=== PATIENT | female | born 1985 | race African-American/Black ===

== ENCOUNTER 2022-12-05 15:59 | Inpatient (IN) ==
[2022-12-05 16:38] LABS: Basophils # (auto) 0.02 K/uL (0-0.2); Basophils % (auto) 0.3 %; Eosinophils # (auto) 0.03 K/uL (0-0.50); Eosinophils % (auto) 0.4 %; Hematocrit (blood only) 27.7 % (37.0-47.0); Hemoglobin 9.2 g/dl (12.0-16.0); Immature Granulocytes # (auto) 0.03 K/uL (0.01-0.20); Immature Granulocytes % (auto) 0.4 %; Lymphocytes # (auto) 1.26 K/uL (1.2-3.4); Mean Corpuscular Hemoglobin 27.7 pg (25.0-34.0); Mean Corpuscular Hgb Conc 33.2 g/dL (32.0-36.0); Mean Corpuscular Volume 83.4 fL (80.0-100.0); Mean Platelet Volume 10.5 fL (9.4-12.4); Monocytes % (auto) 12.1 %; Neutrophils # (auto) 5.17 K/uL (1.40-6.50); Neutrophils % (auto) 69.8 %; Platelet Count 249 K/uL (130-400); RDW Coefficient of Variation 14.1 % (11.5-14.5); RDW Standard Deviation 42.3 fL (36.4-46.3); Red Blood Count 3.32 M/uL (4.20-5.40); White Blood Count 7.41 K/ul (4.8-10.8)
[2022-12-05 17:02] LABS: Alanine Aminotransferase 9 U/L (7-52); Aspartate Aminotransferase 16 U/L (13-39); Est GFR (African American) 141.3 ml/min; Est GFR (Non-African American) 121.9 ml/min
--- NOTE | 2022-12-05 18:16 | History & Physical Report ---
Date of Service December 05, 2022 Assessment & Plan (1) Elevated blood pressure affecting in second trimester, antepartum: Plan: Patient is labeled as chronic hypertensive she has been on medication in the past but not currently now her pressures have crept up and she had protein in her urine today her labs are assessed and these are all normal preeclampsia labs the patient has confided this today that she did do methamphetamine within the last 2 days as well the certainly would have elevated her blood pressure as well. We discussed the importance of avoiding methamphetamine with her chronic hypertensive diagnosis we discussed antihypertensives I did review this case with Dr. Whalen is coming exploration manager tomorrow as well and discussed the possibility of initiation of antihypertensives but most recent blood pressures are much more reasonable at this stage I think we will want to monitor closely collect more data if the blood pressures increase again I would consider starting an antihypertensive. Her protein creatinine ratio is elevated as well and she may well be getting preeclampsia with mild features but we will monitor overnight for more information Additionally drug screen is positive for cocaine methamphetamine and ecstasy and marijuana History of Present Illness Primary Care Provider: Janey Duncan MD Patient sent from the office for blood pressure monitoring she is asymptomatic she has had some increased swelling but no headache no visual problems no right upper quadrant pain she has a history of chronic hypertension and some other medical issues as well including drug use in the past Visit ERICH Calculator Estimated Delivery Date Method Current WG Current Estimate 01/05/23 Ultrasound #1 35w 4d Other Estimates 12/23/22 Conception 37w 3d : 3 Full term: 2 Premature: 0 Total Number of Induced Abortions: 0 Total Number of Spontaneous Abortions: 0 Ectopics: 0 Multiple births: 0 Number of Living Children: 2 and Delivery Plans CHTN *Baby ASA daily start 12-28 wks, continue until delivery *wkly NST's @32wks and twice wkly @36 wks *Serial Growth US @ 24 (doppler only if abnml) *Baseline 24hr urine (additioinal PRN) 204.0 *weekly BRITNEY's @ 32wk(if on meds) *Deliver [id number] -IOL 12/25/22 with Violet *ON methyldopa in a previous *previously on metoprolol Hx of cardiomegaly (2013) *maternal echo - normal function, mild LVH *cannot find any documentation in the chart regarding this--[facility] November 2022 Maternal ECHO: Slight increase LV wall thickness compared to prior, EF 60-65%, no CHF, mild LVH. AMA *weekly NSTs 36w History of Preeclampsia *G1 and G2 * G2 admission for magnesium Hepatitis C positive --new diagnosis planned [facility] GI consult No followup during will treat after ppx. positive drug screen in 2019 for meth, MJ, ecstasy GI states will not see patient until PP and has no recs for Offered MFM consult Allergies Allergy/AdvReac Type Severity Reaction Status Date / Time shellfish derived Allergy Severe Anaphylaxis Verified 12/05/22 14:09 latex Allergy Mild itching Verified 12/05/22 14:09 Iodinated Contrast Media Allergy Unknown ANAPHYLAXIS Verified 12/05/22 14:09 Home Medications Medication Instructions Recorded Confirmed Type aspirin 81 mg tablet,delayed 81 mg PO DAILY 07/14/22 12/05/22 History release (Adult Low Dose Aspirin) folic acid PO 07/14/22 12/05/22 History ferrous sulfate [Iron (ferrous PO 11/14/22 12/05/22 History sulfate)] Patient History Medical History High blood pressure Positive PPD Vaginal delivery (10/06/11) Varicella vaccination Surgical History No pertinent past surgical history Family History Uncle Colorectal cancer Aunt Breast cancer Mother Heart disease Father Heart disease Denies family history of Ovarian cancer Social History Smoking Status: Current every day smoker Tobacco Type: E-cigarettes / Vaping Cigarettes Per Day: 10; Second Hand Exposure: No; Do You Dip or Chew Tobacco: No; Tobacco Cessation Education Requested by Patient: No Hx Alcohol Use: No Hx Substance Use: Yes Last Used Substance: Days (ago) Last Used Substance Other:: Patient states that she last smoked meth on 12/04/22. Preferred Language: Georgian Communication Ability: Effective Paperhanger Contractor Required: No Beliefs That Will Affect Care: None marital status: Legally marital status details: garcia Shaquille Lowry [phone]) [phone] Current Living Situation: Significant Other Current Living Situation Comment: Lives with Father of Baby. Her 2 other children live with her mother. current occupational status: unemployed Other Information That Helps Us Care for You: No Feels Safe at Home: Yes Safety Concerns: Feels Safe At This Time Assistive Devices: None Review of Systems as per Subjective / HPI Physical Exam Constitutional: WD/WN, vitals as above well developed and well nourished Respiratory: normal respiratory effort, lungs clear to auscultation normal respiratory effort Cardiovascular: RRR, no murmur, no edema Gastrointestinal (Abdomen): normal bowel sounds, soft, nontender, no hepatosplenomegaly Results & Data Vital Signs (Past 12 Hours) Vital Signs Pulse BP 12/05/22 18:05 96 H 175/109 H 12/05/22 17:46 93 H 140/91 12/05/22 17:34 82 164/110 H 12/05/22 17:24 87 144/103 H 12/05/22 17:15 76 174/99 H 12/05/22 16:47 74 155/95 H 12/05/22 16:37 90 157/97 H 12/05/22 16:26 94 H 149/94 H 12/05/22 16:16 101 H 152/100 H 12/05/22 16:06 96 H 143/94 H Coding Level of Care Code 06484 INT INP/OBS CARE 3/75MIN Diagnoses Elevated blood pressure affecting in second trimester, antepartum O16.2
[2022-12-05 18:23] LABS: Amphetamines+Metham, Urine Pos (Neg); Barbiturates, Urine Neg (Neg); Benzodiazepine, Urine Neg (Neg); Cocaine, Urine Pos (Neg); MDMA (Ecstacy), Urine Pos (Neg); Methadone, Urine Neg (Neg); Opiate, Urine Neg (Neg); Phencyclidine, Urine Neg (Neg)
[2022-12-05 18:31] LABS: Creatinine Urine Random 341.2 mg/dl; Protein Creatinine Ratio Urine 0.7 (0-0.2); Total Protein Urine Random 244.4 mg/dl (0-11.9)
--- NOTE | 2022-12-06 06:50 | Obstetrical Progress Note ---
Date of Service December 06, 2022 Assessment & Plan (1) Elevated blood pressure affecting in second trimester, antepartum: Plan: Blood pressureblood pressures continue to be labile. Some of them arsome of them are fairly normal range some significantly elevated I i'm hesitant to initiate antihypertensives with her lower blood pressures and again wondering the impact of drug use in the last few days. continue to monitor the stage Admission and Anticipated Discharge Date Admission Date: December 05, 2022 Results & Data Vital Signs (Past 12 Hours) Vital Signs Temp Pulse Resp BP O2 Del Method 12/06/22 06:34 73 131/79 12/06/22 06:03 81 134/89 12/06/22 05:34 87 161/99 H 12/06/22 05:04 76 157/95 H 12/06/22 04:34 83 137/83 12/06/22 04:04 86 152/87 H 12/06/22 03:34 86 155/94 H 12/06/22 03:11 78 140/95 12/06/22 03:04 75 135/88 12/06/22 02:34 96 H 159/100 H 12/06/22 02:05 93 H 153/97 H 12/05/22 19:15 98.2 F 16 Room Air 12/06/22 01:34 95 H 134/110 H 12/06/22 01:03 88 130/74 12/06/22 00:41 91 H 150/86 H 12/06/22 00:26 97 H 147/94 H 12/06/22 00:10 82 139/86 12/05/22 23:57 85 12/05/22 23:57 134/86 12/05/22 23:41 93 H 12/05/22 23:41 128/80 12/05/22 23:25 100 H 12/05/22 23:25 142/91 H 12/05/22 23:10 94 H 12/05/22 23:10 138/95 12/05/22 22:55 91 H 12/05/22 22:55 138/83 12/05/22 22:18 106 H 12/05/22 22:18 155/100 H 12/05/22 21:57 104 H 12/05/22 21:57 138/91 12/05/22 21:55 90 12/05/22 21:55 158/100 H 12/05/22 21:30 92 H 12/05/22 21:30 156/104 H 12/05/22 21:15 100 H 12/05/22 21:15 125/89 12/05/22 20:51 80 12/05/22 20:51 159/103 H 12/05/22 20:45 77 12/05/22 20:45 171/106 H 12/05/22 20:31 82 12/05/22 20:31 154/93 H 12/05/22 20:16 75 177/103 H 12/05/22 19:59 82 131/86 12/05/22 19:44 85 135/83 12/05/22 19:28 80 164/96 H 12/05/22 18:54 88 156/105 H PG Care Time/CCT Total # of Minutes Spent Total Time Spent with Patient: Total time spent is greater than 50% in coordination of care (as documented) at patient's floor/unit and/or counseling patient: Coding Level of Care Code 03949 SUB INP/OBS CARE 1/25MIN Diagnoses Elevated blood pressure affecting in second trimester, antepartum O16.2
[2022-12-06] MEDS ORDERED: BETAMETH SOD PHOS/ACETATE IA 6 MG/ML IM STA (10:02)
[2022-12-06] MEDS ORDERED: LIDOCAINE 1% LOCAL 20 ML VIAL INFIL PRN (10:09)
[2022-12-06] MEDS ORDERED: PENICILLIN G POTASSIUM 6 MU in DEXTROSE 5% 250 ML IV STA (10:09)
[2022-12-06] MEDS ORDERED: OXYTOCIN 30 UNITS/500 ML BAG IV PRN ×4 (10:09→23:46)
--- NOTE | 2022-12-06 10:21 | Labor Progress Brief Note ---
Date of Service December 06, 2022 Subjective Patient feesl well. Denies s/s of pet. Notes occasional contractions. No lof/vb. +fm Assessment & Plan (1) Chronic hypertension affecting : (2) Preeclampsia complicating hypertension: Plan I called MFM at [facility] [facility] and discussed this case with Dr. Flores. Given that she has sporadic severe blood pressures, greater than 4 hours apart, although not sustained needing treatment, she suspects that this patient has pet with severe features with her blood pressure, emmy in setting of pro/peanut farmer ratio of 0.7. Has not needed treatment for blood pressures. She recommends proceeding with delivery without delay given that it is very likely her pressures will continue to be elevated. She has no other severe features. Recommend giving steroids but not delaying moving forward. Discussed this recommendation with the patient who immediately became tearful. Notes she is not ready for this. discussed the risk of continued and eclampsia. Patient understands the risks assoc iated with PET. She is 35 5/7 weeks. We discussed the prematurity of the baby, it is female. 11/21 us showed an appropriately grown baby, she notes was 4#12oz at that us, so likely will be over 5 pounds. She is very concerned about being from her baby. Discussed the situation with peds who is ok with me keeping the patient. However, discussed that if baby would need NICU care, she would then be transferred and they would be . Discussed if she absolutely wants to avoid this, would recommend transfer to [facility] [facility] and that Dr. Flores is willing to accept in transfer. After discussion and answering questions to the best of my ability, she has agreed to proceeding here. Will check cervix soon and make plan to proceed. Admission and Anticipated Discharge Date Admission Date: December 05, 2022 Physical Exam Physical Exam: BPS over observation very labile, low 128-80, high 171/106. Mostly 140s- 150s/90s. However, she has had an occasional severe range blood pressure, that have been documented 4 hours apart. toco--harman efm---130s wtih mod variabiltiy accels to 160s, no decels dtrs--+2/2 no clonus trace edema Results & Data Vital Signs (Past 12 Hours) Vital Signs Temp Pulse Resp BP 12/06/22 10:04 88 143/92 H 12/06/22 09:34 104 H 131/84 12/06/22 09:04 85 124/83 12/06/22 08:34 76 143/88 H 12/06/22 08:04 85 140/83 12/06/22 07:30 20 12/06/22 07:30 36.8 C 20 12/06/22 07:34 71 163/91 H 12/06/22 07:04 78 144/79 H 12/06/22 06:34 73 131/79 12/06/22 06:03 81 134/89 12/06/22 05:34 87 161/99 H 12/06/22 05:04 76 157/95 H 12/06/22 04:34 83 137/83 12/06/22 04:04 86 152/87 H 12/06/22 03:34 86 155/94 H 12/06/22 03:11 78 140/95 12/06/22 03:04 75 135/88 12/06/22 02:34 96 H 159/100 H 12/06/22 02:05 93 H 153/97 H 12/06/22 01:34 95 H 134/110 H 12/06/22 01:03 88 130/74 12/06/22 00:41 91 H 150/86 H 12/06/22 00:26 97 H 147/94 H 12/06/22 00:10 82 139/86 12/05/22 23:57 85 12/05/22 23:57 134/86 12/05/22 23:41 93 H 12/05/22 23:41 128/80 12/05/22 23:25 100 H 12/05/22 23:25 142/91 H 12/05/22 23:10 94 H 12/05/22 23:10 138/95 05 22:55 91 H 12/05/22 22:55 138/83 05 22:18 106 H 12/05/22 22:18 155/100 H Coding Level of Care Code None Diagnoses Chronic hypertension affecting O10.919 Preeclampsia complicating hypertension O11.9
[2022-12-06 10:49] LABS: Hematocrit (blood only) 27.9 % (37.0-47.0); Hemoglobin 9.1 g/dl (12.0-16.0); Mean Corpuscular Hemoglobin 27.8 pg (25.0-34.0); Mean Corpuscular Hgb Conc 32.6 g/dL (32.0-36.0); Mean Corpuscular Volume 85.3 fL (80.0-100.0); Mean Platelet Volume 10.6 fL (9.4-12.4); Platelet Count 232 K/uL (130-400); RDW Coefficient of Variation 14.2 % (11.5-14.5); RDW Standard Deviation 43.4 fL (36.4-46.3); Red Blood Count 3.27 M/uL (4.20-5.40); White Blood Count 5.14 K/ul (4.8-10.8)
[2022-12-06] MEDS ORDERED: MAG SULFATE 4GM BOLUS FROM BAG IV ONE (10:59)
[2022-12-06] MEDS: LACTATED RINGER'S 1,000 ML IV PRN ×2 (11:19→19:15)
[2022-12-06] MEDS: MAGNESIUM SULFATE / WTR 40 GM/1,000 ML BAG IV SCH (11:32)
--- NOTE | 2022-12-06 11:32 | Communication Note ---
Date of Service: December 06, 2022 cx--1/l/h/mid/mod toco--occasional efm--130s wtih mod variaiblity, accels present, no decels. Patient verbally consented for foy bulb. Speculum placed, cx visualized, latex free foy placed through the cervix and balloon and inflated with 30cc sterile water. Tolerated procedure well Foy catheter placed, used hibiclens and water for washing because just really unsure about whether she has an iodine allergy. Placed without difficulty. plan to start pit, and mag. pcn for gbs unknown.
--- NOTE | 2022-12-06 12:09 | Labor Progress Brief Note ---
Date of Service December 06, 2022 Subjective patient notes bulb fell out Assessment & Plan (1) Preeclampsia complicating hypertension: Plan continue pitocin, foy did dilate cervix some. fetus category one. Admission and Anticipated Discharge Date Admission Date: December 06, 2022 Physical Exam Physical Exam: cx--difficult exam secondary to patient discomfort, /-3 toco--occasional contraction efm--130s with modvariabiltiy, accels present, no decels. Results & Data Vital Signs (Past 12 Hours) Vital Signs Temp Pulse Resp BP 12/06/22 12:06 78 144/97 H 12/06/22 11:52 77 140/94 12/06/22 11:36 84 136/91 12/06/22 11:00 20 12/06/22 11:00 37.1 C 81 20 151/86 H 12/06/22 10:04 88 143/92 H 12/06/22 09:34 104 H 131/84 12/06/22 09:04 85 124/83 12/06/22 08:34 76 143/88 H 12/06/22 08:04 85 140/83 12/06/22 07:30 20 12/06/22 07:30 36.8 C 20 12/06/22 07:34 71 163/91 H 12/06/22 07:04 78 144/79 H 12/06/22 06:34 73 131/79 12/06/22 06:03 81 134/89 12/06/22 05:34 87 161/99 H 12/06/22 05:04 76 157/95 H 12/06/22 04:34 83 137/83 12/06/22 04:04 86 152/87 H 12/06/22 03:34 86 155/94 H 12/06/22 03:11 78 140/95 12/06/22 03:04 75 135/88 12/06/22 02:34 96 H 159/100 H 12/06/22 02:05 93 H 153/97 H 12/06/22 01:34 95 H 134/110 H 12/06/22 01:03 88 130/74 12/06/22 00:41 91 H 150/86 H 12/06/22 00:26 97 H 147/94 H 12/06/22 00:10 82 139/86 Coding Level of Care Code None Diagnoses Preeclampsia complicating hypertension O11.9
[2022-12-06] MEDS ORDERED: ePHEDrine sulfate 50 MG/ML AMP ONE (14:47)
[2022-12-06] MEDS ORDERED: SODIUM CHLORIDE 0.9% PF INJ 10 ML VIAL ONE (14:47)
[2022-12-06] MEDS ORDERED: fentaNYL citrate PF 100 MCG/2 ML VIAL ONE (14:47)
[2022-12-06] MEDS ORDERED: fentaNYL 2MCG/ML ROPIVACAINE 1.25MG/ML 100 ML BAG EPI ONE (14:48)
[2022-12-06] MEDS ORDERED: LIDOCAINE 2%/EPINEPHRINE 1:200,000 20 ML PF ONE ×2 (14:48→20:47)
[2022-12-06] MEDS ORDERED: BUPIVACAINE 0.25% PF 30 ML VIAL ONE (14:48)
--- NOTE | 2022-12-06 15:03 | Anesthesiology Consultation ---
Date of Service December 06, 2022 Assessment & Plan (1) Encounter for pre-operative examination: Chart Review Chart Review: Acceptable Risk for Labor Epidural History Height/Weight Height: 5 ft 7 in Weight: 78.018 kg Allergies Allergy/AdvReac Type Severity Reaction Status Date / Time shellfish derived Allergy Severe Anaphylaxis Verified 12/05/22 14:09 latex Allergy Mild itching Verified 12/05/22 14:09 Iodinated Contrast Media Allergy Unknown ANAPHYLAXIS Verified 12/05/22 14:09 Medications Home Medications Medication Instructions Recorded Confirmed Last Taken aspirin 81 mg tablet,delayed 81 mg PO DAILY 07/14/22 12/05/22 Unknown release (Adult Low Dose Aspirin) folic acid PO 07/14/22 12/05/22 Unknown ferrous sulfate [Iron (ferrous PO 11/14/22 12/05/22 Unknown sulfate)] Active Medications Generic Name Dose Route Start Last Admin Trade Name Freq PRN Reason Stop Dose Admin Lactated Ringer's 1,000 mls @ 125 mls/hr 12/06/22 10:09 12/06/22 14:50 Lr IV 12/08/22 10:08 999 mls/hr .Q8H PRN Infusion L&D Protocol Protocol Magnesium Sulfate 40 gm in 1,000 mls @ 50 mls/hr 12/06/22 11:00 12/06/22 12:04 Magnesium Sulfate / Wtr IV 01/05/23 10:59 50 mls/hr .Q20H KALEE Infusion Oxytocin 30 units in 500 mls @ 5 mls/hr 12/06/22 12:09 12/06/22 14:00 Pitocin IV 12/08/22 12:08 0.42 units/hr .Q24H PRN 7 mls/hr Labor Induction/Augmentation Titration Protocol 0.3 UNITS/HR Past Medical History Medical History High blood pressure Positive PPD Vaginal delivery (10/06/11) Varicella vaccination Past Family History Family History Uncle Colorectal cancer Aunt Breast cancer Mother Heart disease Father Heart disease Denies family history of Ovarian cancer Past Surgical History Surgical History No pertinent past surgical history Social History Smoking Status: Current every day smoker tobacco type: cigarettes Smoking cigarettes per day: 10 Do You Dip or Chew Tobacco: No Hx Alcohol Use: No Hx Substance Use: Yes substance use type: methamphetamine Last Used Substance: Days (ago) Last Used Substance Other:: Patient states that she last smoked meth on 12/04/22. Physical Exam Vital Signs Last Vital Signs Temp 37.1 C 12/06/22 11:00 Pulse 85 12/06/22 15:00 Resp 20 12/06/22 11:00 BP 144/88 H 12/06/22 14:52 Pulse Ox 96 12/06/22 15:00 O2 Del Method Room Air 12/05/22 19:15 Testing Laboratory Results 12/06/22 10:17 12/05/22 16:22
[2022-12-06] MEDS ORDERED: fentaNYL citrate PF 100 MCG/2 ML VIAL EPI STA (15:36)
[2022-12-06] MEDS ORDERED: ONDANSETRON INJ 2 MG/ML 2 ML VIAL IV PRN (15:36)
[2022-12-06] MEDS ORDERED: ePHEDrine sulfate 50 MG/ML AMP IV PRN (15:36)
[2022-12-06] MEDS ORDERED: NALOXONE HCL 0.4 MG/1 ML VIAL/CARP IV PRN (15:36)
[2022-12-06] MEDS ORDERED: fentaNYL citrate PF 100 MCG/2 ML VIAL EPI PRN (15:36)
[2022-12-06] MEDS ORDERED: BUPIVACAINE 0.25% PF 30 ML VIAL EPI PRN (15:36)
[2022-12-06] MEDS ORDERED: ROPIVACAINE 0.5% PF 5 MG/ML 20 ML VIAL EPI PRN (15:36)
[2022-12-06] MEDS ORDERED: SODIUM CHLORIDE 0.9% PF INJ 10 ML VIAL EPI PRN (15:36)
[2022-12-06] MEDS ORDERED: NALOXONE HCL 1 MG in SODIUM CHLORIDE 0.9% 1000ML 1,000 ML IV PRN (15:36)
[2022-12-06] MEDS ORDERED: LIDOCAINE 2% MPF LOCAL 5 ML VIAL EPI PRN (15:36)
[2022-12-06] MEDS ORDERED: fentaNYL 2MCG/ML ROPIVACAINE 1.25MG/ML 100 ML BAG EPI PRN (15:36)
[2022-12-06] MEDS ORDERED: SODIUM CHLORIDE 0.9% PF INJ 10 ML VIAL EPI STA (15:40)
[2022-12-06] MEDS ORDERED: LIDOCAINE 2%/EPINEPHRINE 1:200,000 20 ML PF EPI STA (15:41)
[2022-12-06] MEDS ORDERED: BUPIVACAINE 0.25% PF 30 ML VIAL EPI STA (15:43)
[2022-12-06] MEDS: PENICILLIN G POTASSIUM 3 MU in DEXTROSE 5% 100 ML IV PRN ×2 (15:44→19:15)
--- NOTE | 2022-12-06 16:06 | Labor Progress Brief Note ---
Date of Service December 06, 2022 Subjective Patient started getting uncomfortable. Pressures a little higher. Got epidural. Very comfortable. Assessment & Plan (1) Preeclampsia complicating hypertension: Plan comfortable. continue current therapy. Monitor pressures closely 150s-165/90. If gets >165/105 , plan to treat with labetolol. fetus category one. anticipate . arom soon. Admission and Anticipated Discharge Date Admission Date: December 06, 2022 Physical Exam Physical Exam: cx--3/50/-2/anterior under pubis, soft toco--q3-5min, pt at 11 efm--130s with mod variabiltiy, accels to 150s, no decels Results & Data Vital Signs (Past 12 Hours) Vital Signs Temp Pulse Resp BP Pulse Ox 12/06/22 16:01 84 100 12/06/22 16:00 82 158/94 H 12/06/22 15:56 85 98 12/06/22 15:54 87 162/94 H 12/06/22 14:30 20 12/06/22 14:30 20 12/06/22 15:52 83 165/95 H 12/06/22 12:30 20 12/06/22 12:30 20 12/06/22 13:30 18 12/06/22 13:30 18 12/06/22 15:51 84 99 12/06/22 15:35 20 12/06/22 15:35 20 12/06/22 15:45 18 12/06/22 15:45 18 12/06/22 15:50 82 157/92 H 12/06/22 15:48 80 153/91 H 12/06/22 15:46 99 12/06/22 15:46 84 12/06/22 15:46 88 149/89 H 12/06/22 15:44 81 147/89 H 12/06/22 15:41 85 100 12/06/22 15:42 88 151/96 H 12/06/22 15:40 93 H 147/91 H 12/06/22 15:38 80 148/95 H 12/06/22 15:36 99 12/06/22 15:36 80 12/06/22 15:36 80 154/97 H 12/06/22 15:34 76 155/99 H 12/06/22 15:31 92 H 100 12/06/22 15:32 83 153/93 H 12/06/22 15:30 93 H 157/103 H 12/06/22 15:28 83 147/89 H 12/06/22 15:26 86 100 12/06/22 15:21 83 161/99 H 99 12/06/22 15:19 94 H 71 L 12/06/22 15:15 77 94 12/06/22 15:13 88 91 12/06/22 15:10 82 100 12/06/22 15:05 91 H 100 12/06/22 15:06 91 H 153/95 H 12/06/22 15:00 36.9 C 85 20 96 12/06/22 14:55 91 H 100 12/06/22 14:52 83 144/88 H 12/06/22 14:37 78 145/91 H 12/06/22 14:21 78 148/91 H 12/06/22 14:06 84 156/92 H 12/06/22 13:51 80 155/101 H 12/06/22 13:36 90 148/87 H 12/06/22 13:22 82 167/97 H 12/06/22 13:06 88 156/85 H 12/06/22 12:51 83 131/82 12/06/22 12:37 82 136/92 12/06/22 12:22 83 151/98 H 12/06/22 12:06 78 144/97 H 12/06/22 11:52 77 140/94 12/06/22 11:36 84 136/91 12/06/22 11:00 20 12/06/22 11:00 37.1 C 81 20 151/86 H 12/06/22 10:04 88 143/92 H 12/06/22 09:34 104 H 131/84 12/06/22 09:04 85 124/83 12/06/22 08:34 76 143/88 H 12/06/22 08:04 85 140/83 12/06/22 07:30 20 12/06/22 07:30 36.8 C 20 12/06/22 07:34 71 163/91 H 12/06/22 07:04 78 144/79 H 12/06/22 06:34 73 131/79 12/06/22 06:03 81 134/89 12/06/22 05:34 87 161/99 H 12/06/22 05:04 76 157/95 H 12/06/22 04:34 83 137/83 12/06/22 04:04 86 152/87 H Coding Level of Care Code None Diagnoses Preeclampsia complicating hypertension O11.9
--- NOTE | 2022-12-06 19:26 | Communication Note ---
Date of Service: December 06, 2022 Covering service for the time being. I was called by Kellie Allen RN to come to the bedside due to the finding of a significant volume of blood on the chux beneath the patient during a reposition. This could not have accumulated over longer than 1.5 hours based on last time the chux was changed (after pt received epidural) and filled about 75% of a chux. It may be watered-down with either urine (patient has been seen to be voiding around her foy catheter) or amniotic fluid, as it appears "thinner" than shane blood, but is still felt to contain a significant amount of blood. S: Patient just awoke from a nap. Comfortable with epidural other than a sensation of pressure during contractions. O: FHT Cat 1. Vaginal vault had a clot about 2" x 2" and dark / liver-like which plopped out onto the new chux right after it was changed, as the patient lifted her own hips. No further clot was found in the vault on exam, and no brisk active bleeding was observed over the next several minutes of observation with the labia parted. Cervix 3/50/-2. Membranes intact. Vertex presentation. Foy (silicone) in the urethra with some blood right at the urethral meatus, which is widely patent. Foy on some tension when the patient has her legs in an elevated position; this was relieved by removing the catheter rose from the patient's leg and discarding it, leaving the foy loose. A: Severe preeclampsia and IOL at 35w5d with bleeding of unclear source, possibly vaginal and possibly urethral. At this time, status remains reassuring, so if placental abruption is involved it may be only a small partial abruption. Cervical dilation may cause some bleeding, which isn't usually this much volume, but a normal amount of bloody show could have been diluted and made to appear larger in volume by mixing with voided urine. There is also question of traumatic foy insertion and bleeding at the urethral meatus, though that seems not to be of volumes that could completely explain the amount on the chux. For now we will check plts, fibrinogen, PT/PTT/INR, and continue to observe closely while moving towards delivery. Continue monitoring and maternal pulse ox, and we remain ready to intervene if abruption were to prove itself present by suddenly worsening.
[2022-12-06 19:43] LABS: Hematocrit (blood only) 31.7 % (37.0-47.0); Hemoglobin 10.4 g/dl (12.0-16.0); Mean Corpuscular Hemoglobin 27.7 pg (25.0-34.0); Mean Corpuscular Hgb Conc 32.8 g/dL (32.0-36.0); Mean Corpuscular Volume 84.3 fL (80.0-100.0); Mean Platelet Volume 10.7 fL (9.4-12.4); Platelet Count 263 K/uL (130-400); RDW Coefficient of Variation 14.2 % (11.5-14.5); Red Blood Count 3.76 M/uL (4.20-5.40); White Blood Count 7.48 K/ul (4.8-10.8)
[2022-12-06] MEDS ORDERED: SODIUM CHLORIDE 0.9% 250 ML IV PRN (19:47)
--- NOTE | 2022-12-06 20:18 | Communication Note ---
Date of Service: December 06, 2022 Patient's platelets have resulted as normal, other coags still pending. BP has remained stable around 160/90, and since review of her chart showed she is po sitive for methamphetamine and cocaine (which I was not aware of previously), I am reluctant to use labetalol until cocaine is definitely cleared from the patient's system. Can use procardia if it remains elevated. Small vaginal bleeding at this time per RN. Also d/w the internal corrosion specialist MD.
[2022-12-06] MEDS ORDERED: NIFEdipine 10 MG CAP PO STA (20:26)
[2022-12-06] MEDS ORDERED: NIFEdipine 10 MG CAP ONE (20:29)
[2022-12-06] MEDS ORDERED: NURSING L&D Epidural Breakthrough Pain Update ONE (20:35)
[2022-12-06 20:37] LABS: Fibrinogen 465 mg/dl (184-400); INR 0.8 (0.9-1.1); Partial Thromboplastin Ratio 1.1; Partial Thromboplastin Time 29.8 Seconds (21.0-31.0); Prothrombin Time 9.3 Seconds (9.0-12.0)
[2022-12-06] MEDS ORDERED: ROPIVACAINE 0.5% 5 MG/ML 30 ML VIAL ONE (20:47)
--- NOTE | 2022-12-06 20:53 | Anesthesia Procedure Note ---
Date of Service December 06, 2022 Anesthesia Epidural Re-Dose Vital Signs Temp Pulse Resp BP Pulse Ox O2 Del Method 36.8 C 79 20 158/94 H 90 Room Air 12/06/22 19:15 12/06/22 20:48 12/06/22 20:30 12/06/22 20:48 12/06/22 20:47 12/06/22 19:15 Notes Pain Intensity: 10 Dilatation (cm): 3.0 Effacement (%): 50 Called by nursing to evaluate epidural as the patient is having increased pain. The epidural was re-dosed with the following medications (all medications via epidural route) after negative aspiration of the epidural catheter for CSF/HEME 1.2% lidocaine and 0.2% ropivacaine 6 ml After Epidural Re-Dose Mental Status: alert / awake / arousable Pain: improving with treatment Airway Patency, RR, SpO2: stable & adequate BP & HR: stable & adequate
--- NOTE | 2022-12-06 21:07 | Communication Note ---
Date of Service: December 06, 2022 S: Patient feeling some discomfort with contractions. Got epidural bolus dose recently and now with improved comfort. O: BP much improved with procardia 10mg PO x1, now 140-150/80-90. Continues to pass clots per vagina, but no further gushes or soaking of chux pads. Per Samantha CADET, just recently checked and is 5cm dilated. FHT Cat 1. Labs includ ing normal fibrinogen for a term patient, normal PT/INR/PTT and platelets all reviewed. A: HTN due to either Severe preeclampsia or Drugs of abuse, with Presumed partial abruption of placenta resulting in vaginal bleeding. status reassuring at this time. P: Sign out given to Dr. Whalen on the interval events. Will plan AROM to advance labor, with careful observation of presumed partial abruption in the setting of cocaine/meth/ecstasy positive drug test.
--- NOTE | 2022-12-06 21:27 | Labor Progress Brief Note ---
Date of Service December 06, 2022 Subjective comfortable , received sign out from Dr. Stevens and aware of the events in the last couple of hours Assessment & Plan (1) Preeclampsia complicating hypertension: (2) Drug use affecting : Plan arom for thin mec fluid, did not have increased bleeding or pull out any clot on exam. Explained to the patient the situation. Pressure improved with one dose of Nifedipine. Now making change and hope for a rapid delivery. Will continue to monitor closely. Asked again the last time she did any drugs and she notes this weekend. Not on Mon or Tu. Fetus overall category one. Bleeding may be attributable to a partial abruption, but there are currently no effects. Patient aware if bleeding significantly increases or changes in status , may need to proceed with c/s. Admission and Anticipated Discharge Date Admission Date: December 06, 2022 Physical Exam Physical Exam: cx--6/100/2 minimal blood on the chux, no clots toco--q2-3, pit at 17 efm--120s with mod variability, no decels labs all normal, fibrinogen>400 Results & Data Vital Signs (Past 12 Hours) Vital Signs Temp Pulse Resp BP Pulse Ox O2 Del Method 12/06/22 21:00 18 12/06/22 20:00 18 12/06/22 19:15 18 12/06/22 19:15 Room Air 12/06/22 21:21 101 H 100 12/06/22 21:16 103 H 99 12/06/22 21:17 101 H 142/86 H 12/06/22 21:11 95 H 99 12/06/22 21:06 90 99 12/06/22 21:02 87 151/89 H 12/06/22 21:00 18 12/06/22 21:00 18 12/06/22 21:01 94 H 100 12/06/22 20:59 89 155/94 H 12/06/22 20:56 88 97 12/06/22 20:51 92 H 99 12/06/22 20:48 79 158/94 H 12/06/22 20:47 93 H 90 12/06/22 20:46 96 H 100 12/06/22 20:30 20 12/06/22 20:30 20 12/06/22 20:41 81 96 12/06/22 20:36 81 96 12/06/22 20:31 78 149/93 H 99 05 20:26 78 96 05 20:21 79 98 05 20:17 75 183/99 H 12/06/22 20:16 75 99 05 20:11 80 100 12/06/22 20:06 75 99 12/06/22 20:00 18 12/06/22 20:00 18 12/06/22 20:01 78 98 12/06/22 20:02 80 162/95 H 12/06/22 19:56 81 99 12/06/22 19:57 83 164/94 H 12/06/22 19:54 85 89 L 12/06/22 19:51 76 100 12/06/22 19:30 18 12/06/22 19:30 18 12/06/22 19:47 82 165/96 H 12/06/22 19:46 88 100 12/06/22 19:41 79 100 12/06/22 19:36 78 97 12/06/22 19:15 18 12/06/22 19:15 36.8 C 18 12/06/22 19:31 78 100 12/06/22 19:32 75 175/97 H 12/06/22 19:26 84 100 12/06/22 19:21 80 100 12/06/22 19:17 74 153/94 H 12/06/22 19:16 81 100 12/06/22 19:11 85 97 12/06/22 19:06 92 H 98 12/06/22 19:03 71 134/84 12/06/22 19:01 80 100 12/06/22 18:56 88 99 12/06/22 18:51 80 98 12/06/22 18:47 82 147/80 H 12/06/22 18:46 81 98 12/06/22 18:41 80 99 12/06/22 18:36 79 99 05 18:33 76 155/81 H 12/06/22 18:31 80 98 05 18:30 20 12/06/22 18:30 20 12/06/22 18:26 82 99 05 18:21 77 97 12/06/22 18:16 78 131/73 97 12/06/22 18:11 77 97 12/06/22 18:06 81 96 05 18:00 18 12/06/22 18:00 18 12/06/22 18:02 78 132/71 05 18:01 80 96 12/06/22 17:56 83 96 05 17:51 81 96 12/06/22 17:46 79 136/79 98 05 17:41 77 96 05 17:36 85 100 05 17:32 81 146/84 H 12/06/22 17:30 20 05 17:30 20 12/06/22 17:31 82 97 12/06/22 17:26 80 96 12/06/22 17:21 78 97 05 17:16 80 96 12/06/22 17:17 78 125/67 05 17:11 80 96 12/06/22 17:06 83 95 12/06/22 17:00 20 12/06/22 17:00 20 12/06/22 16:30 20 05 16:30 20 05 17:01 78 128/70 97 12/06/22 16:56 85 95 12/06/22 16:51 80 97 12/06/22 16:48 80 128/67 05 16:46 86 94 12/06/22 16:41 83 96 05 16:36 80 99 12/06/22 16:31 79 130/74 98 05 16:26 84 98 12/06/22 16:21 78 98 05 16:16 97 12/06/22 16:16 86 05 16:16 80 136/72 05 16:11 80 98 05 16:09 77 130/76 05 16:06 90 97 05 16:05 80 146/82 H 12/06/22 16:01 84 100 05 16:00 82 158/94 H 12/06/22 15:56 85 98 05 15:54 87 162/94 H 12/06/22 14:30 20 05 14:30 20 05 15:52 83 165/95 H 05 12:30 20 12/06/22 12:30 20 12/06/22 13:30 18 12/06/22 13:30 18 12/06/22 15:51 84 99 12/06/22 15:35 20 12/06/22 15:35 20 12/06/22 15:45 18 12/06/22 15:45 18 12/06/22 15:50 82 157/92 H 12/06/22 15:48 80 153/91 H 12/06/22 15:46 99 12/06/22 15:46 84 12/06/22 15:46 88 149/89 H 12/06/22 15:44 81 147/89 H 12/06/22 15:41 85 100 12/06/22 15:42 88 151/96 H 12/06/22 15:40 93 H 147/91 H 12/06/22 15:38 80 148/95 H 12/06/22 15:36 99 12/06/22 15:36 80 05 15:36 80 154/97 H 12/06/22 15:34 76 155/99 H 12/06/22 15:31 92 H 100 12/06/22 15:32 83 153/93 H 12/06/22 15:30 93 H 157/103 H 12/06/22 15:28 83 147/89 H 12/06/22 15:26 86 100 12/06/22 15:21 83 161/99 H 99 12/06/22 15:19 94 H 71 L 12/06/22 15:15 77 94 12/06/22 15:13 88 91 12/06/22 15:10 82 100 12/06/22 15:05 91 H 100 12/06/22 15:06 91 H 153/95 H 12/06/22 15:00 36.9 C 85 20 96 12/06/22 14:55 91 H 100 12/06/22 14:52 83 144/88 H 12/06/22 14:37 78 145/91 H 12/06/22 14:21 78 148/91 H 12/06/22 14:06 84 156/92 H 12/06/22 13:51 80 155/101 H 12/06/22 13:36 90 148/87 H 12/06/22 13:22 82 167/97 H 05/23 13:06 88 156/85 H 12/06/22 12:51 83 131/82 12/06/22 12:37 82 136/92 12/06/22 12:22 83 151/98 H 12/06/22 12:06 78 144/97 H 12/06/22 11:52 77 140/94 12/06/22 11:36 84 136/91 12/06/22 11:00 20 12/06/22 11:00 37.1 C 81 20 151/86 H 12/06/22 10:04 88 143/92 H 12/06/22 09:34 104 H 131/84 Coding Level of Care Code None Diagnoses Preeclampsia complicating hypertension O11.9 Drug use affecting O99.320
--- NOTE | 2022-12-06 21:54 | Communication Note ---
Date of Service: December 06, 2022 comfortable since arom --early variables with contractions. good variability no increase in bleeding. Monitor closely
[2022-12-06] MEDS ORDERED: BENZOCAINE 20% AER SPR 82.5 GM CAN EXT PRN (23:46)
[2022-12-06] MEDS ORDERED: HYDROCORTISONE ACETATE 25 MG SUPP PR PRN (23:46)
[2022-12-06] MEDS ORDERED: DIPHTHERIA/TETANUS/PERTUSSIS Vaccine (Tdap, Age 7+yrs) 0.5mL SYR/VL IM ONE (23:46)
--- NOTE | 2022-12-06 23:46 | Delivery Summary ---
Vaginal Delivery Summary Date of Service December 06, 2022 Vaginal Delivery Summary Pre-operative Diagnosis: at 35 5/7 weeks Preeclampsia with severe features hx of drug use with positive tox screen new diagnosis of Hepatitis C--no treatment partial abruption Post-operative Diagnosis: same Procedure: magnesium sulfate seizure prophylaxis GBS treatment for unknown status Foy bulb pitocin induction arom EBL: 350cc Anesthesia: epidural Procedure: The patient presented to labor and delivery from the office with elevated blood pressures. It was determined that she had preeclampsia with severe symptoms in her blood pressures. Patient did admit to use of methamphetamines and MJ over the weekend. Her tox screen was positive for meth, MJ, ecstacy and cocaine. She had Mag started. She had a foy bulb placed that fell out within the hour. then she underwent pitocin induction. She eventually had an epidural. she had to be dosed with one dose of Nifedipine 10mg and pressures remained reasonable. When she was about 5cm, she was noted to have some significant bleeding , more than bloody show. She passed a few large clots and filled a chux. the FHT remained category . Labs were obtained and reassuring. We continued with the induction. She underwent arom for thin mec fluid. After arom, the fetus had some early /variable decels but remained reassuring. The patient progressed to c/c/+2 station. The patient pushed for 3 contractions to deliver a viable female infant in doa position that rotated to yesy. A loose nuchal cord x 1 reduced. The rest of the was then delivered without difficulty. The baby was vigorous. After delivery of the baby several clots came out of the vagina. While drying and suctioning the baby, the placenta spontaneously delivered and fell out of the vagina. The was placed in the maternal abdomen for drying and attention. Cord was clamped and cut. Cord blood obtained. Cervix/sulci/rectum and perineum were intact. Hemostasis obtained with dilute pitocin and fundal massage. Apgars were pending. Mother and baby doing well at the end of the delivery. Patient will remain on Mag prophylaxis. [facility] Vaginal Delivery Charge Delivery Type Details:
[2022-12-07] MEDS: MAGNESIUM SULFATE / WTR 40 GM/1,000 ML BAG IV SCH (04:39)
--- NOTE | 2022-12-07 05:52 | Obstetrical Progress Note ---
Date of Service December 07, 2022 Subjective Patient is a [_] yo female G[_]P[_] who is now PPD #[_] following spontaneous vaginal delivery at [_] weeks. Reports feeling well this morning. She [_] abdominal cramping and [_]/10 pain well managed on analgesics. Voiding [_]. Tolerating regular meals overnight and able to ambulate some. She [has not] [has] passed gas and [_] bowel movements. Persistent lochia with some improvement this morning. Currently [breast] [bottle] feeding. Review of Systems Denies fever, chills, sweats. Denies SOB, difficulty breathing, chest pain, palpitations, and chest pressure. Denies breast pain. Denies dysuria. Denies headache or changes in vision. Physical Exam General: Alert and oriented. No acute distress. CV: Regular rate and rhythm. No murmurs. Respiratory: CTA bilaterally. No rhonchi, wheezes, or crackles. No increased work of breathing. Abdomen: Positive bowel sounds. Soft, nontender, non distended. Uterus: Fundus firm and palpable [_] cm below the umbilicus. Lower extremities: No LE edema. No deep calf pain. Shameka's negative bilaterally. Results & Data Vital Signs (Past 12 Hours) Vital Signs Temp Pulse Resp BP Pulse Ox O2 Del Method 12/07/22 05:00 18 12/07/22 04:10 36.9 C 18 12/07/22 04:10 18 12/07/22 03:00 18 12/07/22 02:00 18 12/07/22 01:30 36.8 C 18 12/07/22 01:00 18 12/07/22 01:00 18 12/07/22 00:30 18 12/07/22 00:15 18 12/07/22 00:00 18 12/07/22 00:00 18 12/06/22 23:45 18 12/06/22 23:30 36.8 C 18 12/06/22 23:00 18 12/06/22 22:00 18 12/06/22 21:00 18 12/06/22 20:00 18 12/06/22 19:15 18 12/06/22 19:15 Room Air 12/07/22 05:47 97 H 94 12/07/22 05:42 96 H 94 12/07/22 05:37 88 95 12/07/22 05:32 89 95 12/07/22 05:27 88 95 12/07/22 05:22 92 H 95 12/07/22 05:17 93 H 95 12/07/22 05:12 93 H 95 12/07/22 05:07 92 H 95 12/07/22 05:02 90 95 12/07/22 04:57 89 121/62 95 12/07/22 04:52 92 H 97 12/07/22 04:47 89 97 12/07/22 04:42 89 97 12/07/22 04:37 86 98 12/07/22 04:32 88 97 12/07/22 04:27 87 97 12/07/22 04:22 87 98 12/07/22 04:17 84 99 12/07/22 04:12 116 H 95 12/07/22 04:06 91 H 100 12/07/22 04:03 102 H 90 12/07/22 04:01 102 H 99 12/07/22 03:57 96 H 156/79 H 05 03:56 100 H 96 12/07/22 03:51 99 H 96 12/07/22 03:46 97 H 97 12/07/22 03:41 99 H 96 12/07/22 03:36 97 H 96 12/07/22 03:31 95 H 97 12/07/22 03:26 90 99 12/07/22 03:21 92 H 99 12/07/22 03:16 97 H 97 12/07/22 03:11 92 H 98 12/07/22 03:06 93 H 98 12/07/22 03:01 88 99 12/07/22 02:57 83 158/95 H 12/07/22 02:56 88 99 12/07/22 02:51 88 99 12/07/22 02:46 90 97 12/07/22 02:41 91 H 97 12/07/22 02:36 89 98 12/07/22 02:31 89 98 12/07/22 02:26 90 98 12/07/22 02:21 85 99 12/07/22 02:16 87 100 05 02:11 86 100 05 02:06 88 100 12/07/22 02:01 94 H 100 12/07/22 01:56 107 H 100 12/07/22 01:41 82 100 12/07/22 01:36 82 100 12/07/22 01:31 87 144/95 H 100 12/07/22 01:26 89 100 12/07/22 01:21 87 100 12/07/22 01:20 84 91 12/07/22 01:16 88 163/88 H 100 12/07/22 01:11 82 99 12/07/22 01:06 98 12/07/22 01:06 80 12/07/22 01:06 80 158/80 H 12/07/22 01:03 86 223/102 H 12/07/22 01:01 96 H 98 12/07/22 00:56 87 100 12/07/22 00:51 89 100 12/07/22 00:46 88 98 12/07/22 00:41 85 100 12/07/22 00:36 82 98 12/07/22 00:31 85 157/82 H 100 12/07/22 00:30 91 H 91 12/07/22 00:26 93 H 94 12/07/22 00:23 88 89 L 12/07/22 00:21 86 99 12/07/22 00:16 84 170/100 H 100 12/07/22 00:11 83 100 12/07/22 00:08 88 88 L 12/07/22 00:06 83 100 12/07/22 00:01 88 154/101 H 98 12/06/22 23:56 93 H 98 12/06/22 23:52 88 88 L 12/06/22 23:51 80 99 12/06/22 23:46 87 152/93 H 99 05 23:41 94 H 99 05 23:36 93 H 99 05 23:31 93 H 100 05 23:32 94 H 144/87 H 05 23:26 100 H 99 05 23:23 90 88 L 12/06/22 23:21 96 H 100 12/06/22 23:16 101 H 100 05 23:17 100 H 147/98 H 05 23:11 82 100 05 23:00 18 12/06/22 23:00 18 12/06/22 23:09 94 H 88 L 12/06/22 23:06 91 H 100 12/06/22 23:03 86 154/93 H 12/06/22 23:01 86 97 12/06/22 22:56 83 99 12/06/22 22:30 18 12/06/22 22:30 18 12/06/22 22:51 84 99 12/06/22 22:46 80 99 12/06/22 22:47 81 141/87 H 12/06/22 22:41 82 97 12/06/22 22:36 85 95 12/06/22 22:32 77 142/85 H 12/06/22 22:31 79 99 12/06/22 22:26 97 H 95 12/06/22 22:24 81 89 L 12/06/22 22:21 85 99 12/06/22 22:16 102 H 99 12/06/22 22:17 92 H 137/83 12/06/22 22:11 88 100 12/06/22 22:06 91 H 98 12/06/22 22:00 18 12/06/22 22:00 18 12/06/22 22:02 83 147/89 H 12/06/22 22:01 85 100 12/06/22 21:56 87 99 12/06/22 21:51 93 H 100 12/06/22 21:48 89 157/89 H 12/06/22 21:46 87 100 12/06/22 21:42 90 88 L 12/06/22 21:41 87 99 12/06/22 21:36 91 H 100 12/06/22 21:32 91 H 143/87 H 12/06/22 21:30 18 12/06/22 21:30 18 12/06/22 21:31 92 H 99 12/06/22 21:26 93 H 100 12/06/22 21:21 101 H 100 12/06/22 21:16 103 H 99 12/06/22 21:17 101 H 142/86 H 12/06/22 21:11 95 H 99 12/06/22 21:06 90 99 12/06/22 21:02 87 151/89 H 12/06/22 21:00 18 12/06/22 21:00 18 12/06/22 21:01 94 H 100 12/06/22 20:59 89 155/94 H 12/06/22 20:56 88 97 12/06/22 20:51 92 H 99 12/06/22 20:48 79 158/94 H 12/06/22 20:47 93 H 90 12/06/22 20:46 96 H 100 12/06/22 20:30 20 12/06/22 20:30 20 12/06/22 20:41 81 96 12/06/22 20:36 81 96 12/06/22 20:31 78 149/93 H 99 05 20:26 78 96 12/06/22 20:21 79 98 12/06/22 20:17 75 183/99 H 12/06/22 20:16 75 99 12/06/22 20:11 80 100 12/06/22 20:06 75 99 12/06/22 20:00 18 12/06/22 20:00 18 12/06/22 20:01 78 98 12/06/22 20:02 80 162/95 H 12/06/22 19:56 81 99 12/06/22 19:57 83 164/94 H 12/06/22 19:54 85 89 L 12/06/22 19:51 76 100 12/06/22 19:30 18 12/06/22 19:30 18 12/06/22 19:47 82 165/96 H 12/06/22 19:46 88 100 12/06/22 19:41 79 100 12/06/22 19:36 78 97 12/06/22 19:15 18 12/06/22 19:15 36.8 C 18 12/06/22 19:31 78 100 05 19:32 75 175/97 H 12/06/22 19:26 84 100 12/06/22 19:21 80 100 05 19:17 74 153/94 H 12/06/22 19:16 81 100 12/06/22 19:11 85 97 12/06/22 19:06 92 H 98 12/06/22 19:03 71 134/84 12/06/22 19:01 80 100 12/06/22 18:56 88 99 12/06/22 18:51 80 98 05 18:47 82 147/80 H 12/06/22 18:46 81 98 0523 18:41 80 99 12/06/22 18:36 79 99 12/06/22 18:33 76 155/81 H 12/06/22 18:31 80 98 12/06/22 18:30 20 12/06/22 18:30 20 12/06/22 18:26 82 99 12/06/22 18:21 77 97 12/06/22 18:16 78 131/73 97 12/06/22 18:11 77 97 12/06/22 18:06 81 96 12/06/22 18:00 18 12/06/22 18:00 18 12/06/22 18:02 78 132/71 12/06/22 18:01 80 96 12/06/22 17:56 83 96
--- NOTE | 2022-12-07 07:16 | Obstetrical Progress Note ---
Date of Service December 07, 2022 Assessment & Plan (1) Drug use affecting : (2) Preeclampsia complicating hypertension: (3) Hepatitis C: Plan Continues on Mag for 12-24 hours. Pressures are mild high but not severe range at this point. May need antihypertensives off mag. Patient aware of this possibility. continue to monitor closely. Subjective Ambulation: ambulating normally Voiding: incontinence Passing Gas:: Yes Diet Tolerance:: clear liquids Lochia:: Small Patient feels well. Denies berger or other s/s of pet Physical Exam Constitutional WD/WN, vitals as above Cardiovascular Extremities: no calf tenderness and no edema Gastrointestinal (Abdomen) soft, nt, nd, ff 2 below u Neurologic patellar DTR's 2+ bilat, sensation intact Results & Data Vital Signs (Past 12 Hours) Vital Signs Temp Pulse Resp BP Pulse Ox O2 Del Method 12/07/22 06:00 18 12/07/22 05:00 18 12/07/22 04:10 36.9 C 18 12/07/22 04:10 18 12/07/22 03:00 18 12/07/22 02:00 18 12/07/22 01:30 36.8 C 18 12/07/22 01:00 18 12/07/22 01:00 18 12/07/22 00:30 18 12/07/22 00:15 18 12/07/22 00:00 18 12/07/22 00:00 18 12/06/22 23:45 18 12/06/22 23:30 36.8 C 18 12/06/22 23:00 18 12/06/22 22:00 18 12/06/22 21:00 18 12/06/22 20:00 18 12/06/22 19:15 18 12/06/22 19:15 Room Air 12/07/22 07:07 90 98 12/07/22 06:57 88 136/75 12/07/22 05:57 90 126/63 96 12/07/22 05:52 97 H 94 12/07/22 05:47 97 H 94 12/07/22 05:42 96 H 94 12/07/22 05:37 88 95 12/07/22 05:32 89 95 12/07/22 05:27 88 95 12/07/22 05:22 92 H 95 12/07/22 05:17 93 H 95 12/07/22 05:12 93 H 95 12/07/22 05:07 92 H 95 12/07/22 05:02 90 95 12/07/22 04:57 89 121/62 95 12/07/22 04:52 92 H 97 12/07/22 04:47 89 97 12/07/22 04:42 89 97 12/07/22 04:37 86 98 12/07/22 04:32 88 97 12/07/22 04:27 87 97 12/07/22 04:22 87 98 12/07/22 04:17 84 99 12/07/22 04:12 116 H 95 12/07/22 04:06 91 H 100 12/07/22 04:03 102 H 90 12/07/22 04:01 102 H 99 12/07/22 03:57 96 H 156/79 H 12/07/22 03:56 100 H 96 12/07/22 03:51 99 H 96 12/07/22 03:46 97 H 97 12/07/22 03:41 99 H 96 12/07/22 03:36 97 H 96 12/07/22 03:31 95 H 97 12/07/22 03:26 90 99 12/07/22 03:21 92 H 99 12/07/22 03:16 97 H 97 12/07/22 03:11 92 H 98 12/07/22 03:06 93 H 98 12/07/22 03:01 88 99 12/07/22 02:57 83 158/95 H 12/07/22 02:56 88 99 12/07/22 02:51 88 99 12/07/22 02:46 90 97 12/07/22 02:41 91 H 97 12/07/22 02:36 89 98 12/07/22 02:31 89 98 12/07/22 02:26 90 98 12/07/22 02:21 85 99 12/07/22 02:16 87 100 12/07/22 02:11 86 100 05 02:06 88 100 12/07/22 02:01 94 H 100 12/07/22 01:56 107 H 100 05 01:41 82 100 05 01:36 82 100 12/07/22 01:31 87 144/95 H 100 12/07/22 01:26 89 100 12/07/22 01:21 87 100 12/07/22 01:20 84 91 12/07/22 01:16 88 163/88 H 100 12/07/22 01:11 82 99 12/07/22 01:06 98 12/07/22 01:06 80 12/07/22 01:06 80 158/80 H 12/07/22 01:03 86 223/102 H 12/07/22 01:01 96 H 98 12/07/22 00:56 87 100 12/07/22 00:51 89 100 12/07/22 00:46 88 98 12/07/22 00:41 85 100 12/07/22 00:36 82 98 12/07/22 00:31 85 157/82 H 100 12/07/22 00:30 91 H 91 12/07/22 00:26 93 H 94 12/07/22 00:23 88 89 L 12/07/22 00:21 86 99 12/07/22 00:16 84 170/100 H 100 12/07/22 00:11 83 100 12/07/22 00:08 88 88 L 12/07/22 00:06 83 100 12/07/22 00:01 88 154/101 H 98 12/06/22 23:56 93 H 98 12/06/22 23:52 88 88 L 12/06/22 23:51 80 99 12/06/22 23:46 87 152/93 H 99 12/06/22 23:41 94 H 99 12/06/22 23:36 93 H 99 12/06/22 23:31 93 H 100 12/06/22 23:32 94 H 144/87 H 12/06/22 23:26 100 H 99 12/06/22 23:23 90 88 L 12/06/22 23:21 96 H 100 12/06/22 23:16 101 H 100 05 23:17 100 H 147/98 H 12/06/22 23:11 82 100 12/06/22 23:00 18 12/06/22 23:00 18 12/06/22 23:09 94 H 88 L 12/06/22 23:06 91 H 100 05 23:03 86 154/93 H 12/06/22 23:01 86 97 05 22:56 83 99 12/06/22 22:30 18 12/06/22 22:30 18 12/06/22 22:51 84 99 12/06/22 22:46 80 99 12/06/22 22:47 81 141/87 H 12/06/22 22:41 82 97 12/06/22 22:36 85 95 12/06/22 22:32 77 142/85 H 12/06/22 22:31 79 99 12/06/22 22:26 97 H 95 12/06/22 22:24 81 89 L 12/06/22 22:21 85 99 12/06/22 22:16 102 H 99 12/06/22 22:17 92 H 137/83 12/06/22 22:11 88 100 12/06/22 22:06 91 H 98 12/06/22 22:00 18 12/06/22 22:00 18 12/06/22 22:02 83 147/89 H 12/06/22 22:01 85 100 12/06/22 21:56 87 99 12/06/22 21:51 93 H 100 12/06/22 21:48 89 157/89 H 12/06/22 21:46 87 100 12/06/22 21:42 90 88 L 12/06/22 21:41 87 99 12/06/22 21:36 91 H 100 12/06/22 21:32 91 H 143/87 H 12/06/22 21:30 18 12/06/22 21:30 18 12/06/22 21:31 92 H 99 12/06/22 21:26 93 H 100 12/06/22 21:21 101 H 100 12/06/22 21:16 103 H 99 12/06/22 21:17 101 H 142/86 H 12/06/22 21:11 95 H 99 12/06/22 21:06 90 99 12/06/22 21:02 87 151/89 H 12/06/22 21:00 18 12/06/22 21:00 18 12/06/22 21:01 94 H 100 12/06/22 20:59 89 155/94 H 12/06/22 20:56 88 97 12/06/22 20:51 92 H 99 12/06/22 20:48 79 158/94 H 12/06/22 20:47 93 H 90 12/06/22 20:46 96 H 100 12/06/22 20:30 20 12/06/22 20:30 20 12/06/22 20:41 81 96 12/06/22 20:36 81 96 12/06/22 20:31 78 149/93 H 99 12/06/22 20:26 78 96 12/06/22 20:21 79 98 12/06/22 20:17 75 183/99 H 12/06/22 20:16 75 99 12/06/22 20:11 80 100 12/06/22 20:06 75 99 12/06/22 20:00 18 12/06/22 20:00 18 12/06/22 20:01 78 98 12/06/22 20:02 80 162/95 H 12/06/22 19:56 81 99 12/06/22 19:57 83 164/94 H 12/06/22 19:54 85 89 L 12/06/22 19:51 76 100 12/06/22 19:30 18 12/06/22 19:30 18 12/06/22 19:47 82 165/96 H 12/06/22 19:46 88 100 12/06/22 19:41 79 100 12/06/22 19:36 78 97 12/06/22 19:15 18 12/06/22 19:15 36.8 C 18 12/06/22 19:31 78 100 12/06/22 19:32 75 175/97 H 12/06/22 19:26 84 100 12/06/22 19:21 80 100 12/06/22 19:17 74 153/94 H 12/06/22 19:16 81 100
--- NOTE | 2022-12-07 07:22 | Anesthesia Procedure Note ---
Date of Service December 07, 2022 Anesthesia Post Epidural Note Vital Signs Vital Signs: Temp Pulse Resp BP Pulse Ox O2 Del Method 36.9 C 92 H 18 136/75 100 Room Air 12/07/22 04:10 12/07/22 07:20 12/07/22 06:00 12/07/22 06:57 12/07/22 07:20 12/06/22 19:15 Pain Intensity Abdomen: Pain Intensity: 1 Notes Mental Status: alert / awake / arousable Nausea / Vomiting: adequately controlled Pain: adequately controlled Airway Patency, RR, SpO2: stable & adequate BP & HR: stable & adequate Hydration State: stable & adequate Neuraxial Anesthesia: was administered and sensory block is resolving Anesthetic Complications: no major complications apparent and Pt Satisfied with anesthetic care Epidural: Removed without complications and With tip intact
[2022-12-07 07:39] LABS: Hematocrit (blood only) 24.4 % (37.0-47.0); Hemoglobin 8.1 g/dl (12.0-16.0)
[2022-12-07] MEDS: LACTATED RINGER'S 1,000 ML IV PRN ×2 (08:57→21:59)
[2022-12-07] MEDS: PRENATAL VITAMIN 1 TAB PO SCH (10:55)
--- NOTE | 2022-12-07 11:12 | Communication Note ---
Date of Service: December 07, 2022 Patient discussed with Ludy Ruth RN. Previously pt reported being very sleepy, and was not responding other than with a moan and a swatting hand to being ta pped and stimulated in an effort to wake her up. This was different than her previous behavior per the nurse. Stat Magnesium level normal at 5. Vitals have remained normal throughout. Shortly after Ariadne first notified me of the patient seeming very sleepy, CYS arrived to discuss the patient's drug test and possible care needs for her . At that point, Ariadne notes the patient was immediat araceli/easily arousable, and is actually speaking with CYS not just fluently but is a bit aggressive and agitated with them, making movements symmetrically and energetically as well. It's unclear to her at this point if the patient was really sleepy, or if she was simply acting that way as she was hoping to be left alone earlier. There are not currently any evident neurologic deficits and the patient is at her cognitive baseline, so we'll restart the magnesium and continue observation.
[2022-12-07] MEDS ORDERED: Nursing to Pharmacy Communication SCH ×2 (11:15→11:30)
[2022-12-07] MEDS: DOCUSATE SODIUM 100 MG CAP PO SCH ×2 (11:30→20:48)
[2022-12-07] MEDS ORDERED: MAGNESIUM SULFATE / WTR 40 GM/1,000 ML BAG IV SCH (12:00)
[2022-12-07] MEDS ORDERED: bisacodyL 5 MG TABEC PO SCH (20:00)
--- NOTE | 2022-12-08 07:08 | Obstetrical Progress Note ---
Date of Service December 08, 2022 Assessment & Plan (1) Drug use affecting : Infant for corbin scoring / CYS involved. Patient with normotension currently. Likely a contributing if not causative factor of her acute abruption. (2) Hepatitis C: Chronic, outpatient mgmt. Peds aware. (3) Preeclampsia complicating hypertension: Off mag, BP acceptable without medication at this time, no s/sx severe disease. Recovering normally from vaginal delivery. (4) Elderly multigravida: Subjective Ambulation: ambulating normally Voiding: incontinence (Pt is concerned that this is due to foy insertion being done incorrectly. D/W patient. Note she voided around her foy even while it was in place, has widely patent urethral orifice, incontinence peripartum is common, etc.) Passing Gas:: Yes Diet Tolerance:: regular diet Lochia:: Small Feeding Type:: bottle feeding Current Pain Level(1-10): 0 Sleeping upon my entry to room. Physical Exam Constitutional WD/WN, vitals as above Eyes PERRL, conjunctivae normal, anicteric sclerae ENMT external ear and nose normal, oropharynx normal Neck trachea midline, no thyromegaly Respiratory normal respiratory effort and able to speak in complete sentences; no respiratory distress, no labored breathing and does not use accessory muscles Cardiovascular Rate/Rhythm: regular rate and regular rhythm Extremities: no calf tenderness and no pedal edema Gastrointestinal (Abdomen) Inspection/Auscultation: abdomen normal to inspection; abdomen not distended Musculoskeletal no cyanosis or clubbing, extremities motor strength 5/5 Skin no rashes, warm and dry Genitourinary Speculum/Bimanual Exam: uterus nontender OB Exam Abdomen: + fundal height (at umbilicus) Fundus: + firm Results & Data Vital Signs (Past 12 Hours) Vital Signs Temp Pulse Pulse Resp BP BP BP 12/08/22 05:07 137/74 12/08/22 03:37 98.4 F 88 18 149/85 H 12/07/22 23:50 98.8 F 86 20 140/82 12/07/22 23:00 18 12/07/22 22:02 18 12/07/22 21:00 18 12/07/22 20:00 18 12/07/22 23:23 81 12/07/22 23:18 80 12/07/22 23:13 82 05 23:08 82 05 23:03 82 05 22:58 90 05 22:53 93 H 12/07/22 22:48 94 H 12/07/22 22:46 90 05 22:43 91 H 12/07/22 22:38 88 05 22:33 92 H 12/07/22 22:28 91 H 12/07/22 22:25 84 05 22:23 85 05 22:18 86 05 22:13 87 12/07/22 22:08 89 12/07/22 22:04 90 12/07/22 22:03 100 H 12/07/22 22:00 77 128/70 12/07/22 21:58 81 12/07/22 21:53 83 12/07/22 21:48 82 12/07/22 21:43 77 12/07/22 21:38 84 12/07/22 21:33 90 12/07/22 21:28 93 H 12/07/22 21:23 83 12/07/22 21:18 96 H 12/07/22 21:15 86 12/07/22 21:13 82 12/07/22 21:08 89 12/07/22 21:03 94 H 12/07/22 20:58 92 H 12/07/22 20:57 98 H 12/07/22 20:53 92 H 12/07/22 20:50 80 135/83 05 20:48 81 12/07/22 20:43 81 12/07/22 20:38 87 05 20:33 80 05 20:28 90 12/07/22 20:23 85 12/07/22 20:18 87 12/07/22 20:14 82 12/07/22 20:13 86 12/07/22 20:07 97 H 12/07/22 20:02 93 H 12/07/22 19:57 92 H 12/07/22 19:52 87 12/07/22 19:47 86 12/07/22 19:42 05 19:42 90 12/07/22 19:42 95 H 05 19:37 84 12/07/22 19:32 85 12/07/22 19:27 98 H 12/07/22 19:22 92 H 12/07/22 19:17 93 H 12/07/22 19:15 92 H 12/07/22 19:12 87 12/07/22 19:07 88 12/07/22 19:05 84 149/84 H Pulse Ox O2 Del Method 12/08/22 05:07 12/08/22 03:37 97 Room Air 12/07/22 23:50 97 Room Air 12/07/22 23:00 12/07/22 22:02 12/07/22 21:00 12/07/22 20:00 12/07/22 23:23 99 12/07/22 23:18 99 12/07/22 23:13 98 12/07/22 23:08 100 12/07/22 23:03 100 12/07/22 22:58 99 12/07/22 22:53 100 12/07/22 22:48 100 12/07/22 22:46 88 L 12/07/22 22:43 100 12/07/22 22:38 100 12/07/22 22:33 100 12/07/22 22:28 100 12/07/22 22:25 88 L 12/07/22 22:23 100 12/07/22 22:18 100 12/07/22 22:13 99 12/07/22 22:08 99 12/07/22 22:04 89 L 12/07/22 22:03 100 12/07/22 22:00 12/07/22 21:58 100 12/07/22 21:53 99 12/07/22 21:48 99 12/07/22 21:43 100 12/07/22 21:38 100 12/07/22 21:33 100 12/07/22 21:28 100 12/07/22 21:23 100 12/07/22 21:18 98 12/07/22 21:15 90 12/07/22 21:13 99 12/07/22 21:08 100 12/07/22 21:03 100 12/07/22 20:58 100 12/07/22 20:57 88 L 12/07/22 20:53 100 12/07/22 20:50 12/07/22 20:48 100 12/07/22 20:43 100 12/07/22 20:38 100 12/07/22 20:33 100 12/07/22 20:28 100 12/07/22 20:23 100 12/07/22 20:18 100 12/07/22 20:14 88 L 12/07/22 20:13 100 12/07/22 20:07 83 L 12/07/22 20:02 100 12/07/22 19:57 100 12/07/22 19:52 100 12/07/22 19:47 100 12/07/22 19:42 100 12/07/22 19:42 12/07/22 19:42 86 L 12/07/22 19:37 100 12/07/22 19:32 100 12/07/22 19:27 100 12/07/22 19:22 100 12/07/22 19:17 100 12/07/22 19:15 89 L 12/07/22 19:12 99 12/07/22 19:07 100 12/07/22 19:05
[2022-12-08] MEDS: DOCUSATE SODIUM 100 MG CAP PO SCH ×2 (08:16→19:53)
[2022-12-08] MEDS: PRENATAL VITAMIN 1 TAB PO SCH ×2 (08:16→08:17)
[2022-12-08] MEDS: IBUPROFEN 600 MG TAB PO PRN (13:48)
[2022-12-08] MEDS ORDERED: bisacodyL 10 MG SUPP PR PRN (23:46)
--- NOTE | 2022-12-09 07:33 | Obstetrical Progress Note ---
Date of Service December 09, 2022 Assessment & Plan (1) examination following vaginal delivery: Plan stable, will see how bps look today, may need to initiate po meds reviewed with patient. but will plan dc home. bottle, rh pos, ri. addendum: am bp ok. plan dc. instructions reviewed and pt to be made aware need one wk bp check in office. Day #:: 3 Subjective Ambulation: ambulating normally Voiding: no voiding problems Diet Tolerance:: regular diet Lochia:: Small Feeding Type:: bottle feeding she feels sweaty. otherwise ok. no berger, visual change. some lochia. Constitutional: + as per Subjective / HPI Physical Exam Constitutional WD/WN, vitals as above Respiratory normal respiratory effort, lungs clear to auscultation Cardiovascular Rate/Rhythm: regular rate and regular rhythm Gastrointestinal (Abdomen) Inspection/Auscultation: abdomen normal to inspection Percussion/Palpation: abdomen soft Fundus firm 2cm down Musculoskeletal nt calves no edema Neurologic grossly normal Psychiatric A+Ox3, euthymic affect Results & Data Vital Signs (Past 12 Hours) Vital Signs Temp Pulse Resp BP BP Pulse Ox O2 Del Method 12/08/22 23:30 98.1 F 64 16 163/72 H 150/90 H 98 Room Air 12/08/22 19:45 98.6 F 75 16 143/91 H 97 Room Air
[2022-12-09] MEDS: PRENATAL VITAMIN 1 TAB PO SCH (07:58)
[2022-12-09] MEDS: DOCUSATE SODIUM 100 MG CAP PO SCH ×2 (07:58→21:24)
[2022-12-09] MEDS ORDERED: NIFEdipine EXTENDED REL 30 MG TABCR PO STA ×2 (17:01→21:06)
[2022-12-09] MEDS: IBUPROFEN 600 MG TAB PO PRN (21:25)
[2022-12-10] MEDS: ACETAMINOPHEN 325 MG TAB PO PRN ×2 (04:37→17:29)
[2022-12-10] MEDS: DOCUSATE SODIUM 100 MG CAP PO SCH (08:28)
[2022-12-10] MEDS: PRENATAL VITAMIN 1 TAB PO SCH (08:29)
--- NOTE | 2022-12-10 09:58 | Obstetrical Progress Note ---
Date of Service December 10, 2022 Assessment & Plan (1) examination following vaginal delivery: BPs elevated, improvement with procardia. Gave 30mg yesterday afternoon, therefore will hold today's 30mg dose until noon. Rx to pharmacy for procardia extended release 30mg daily, RTO for blood pressure check this week. Subjective Ambulation: ambulating normally Voiding: no voiding problems Diet Tolerance:: regular diet Lochia:: Moderate Review of Systems All systems reviewed & are unremarkable except as noted in HPI & below Physical Exam Constitutional WD/WN, vitals as above no acute distress Respiratory normal respiratory effort Cardiovascular Rate/Rhythm: regular rate and regular rhythm Gastrointestinal (Abdomen) Inspection/Auscultation: abdomen normal to inspection; abdomen not distended Percussion/Palpation: abdomen soft Genitourinary OB Exam Abdomen: + fundal height Fundus: + firm; not tender Results & Data Vital Signs (Past 12 Hours) Vital Signs Temp Pulse Resp BP 12/10/22 08:15 36.7 C 81 18 134/81 12/10/22 04:30 36.9 C 87 18 145/82 H 12/10/22 01:33 137/83 12/09/22 22:41 75 150/85 H
[2022-12-10] MEDS: IBUPROFEN 600 MG TAB PO PRN ×2 (10:37→16:19)
[2022-12-10] MEDS ORDERED: NIFEdipine EXTENDED REL 30 MG TABCR PO SCH (12:00)
[2022-12-12 12:21] LABS: Amphetamine Urine, Confirm 9049 ng/mL (<250); Cocaine, Urine 309 ng/mL (<100); MDA negative; MDEA negative; MDMA (Ecstasy) Urine, Confirm negative; Marijuana Quant, GCMS Urine 860 ng/mL (<5); Methamphetamine, Ur Confirm >15000 ng/mL (<250)
== END 2022-12-10 18:33 | disposition home or self-care (01) | DRG 806 ==
LOC: 4S1 15:59 → OPB 15:59 → 4S1 16:02 → 4E2 12-07 23:44

== ENCOUNTER 2023-02-06 09:33 | Inpatient (IN) ==
[2023-02-06 10:50] LABS: Hematocrit (blood only) 31.2 % (37.0-47.0); Hemoglobin 10.2 g/dl (12.0-16.0); Mean Corpuscular Hgb Conc 32.7 g/dL (32.0-36.0); Mean Corpuscular Volume 82.5 fL (80.0-100.0); Mean Platelet Volume 11.1 fL (9.4-12.4); Platelet Count 293 K/uL (130-400); RDW Coefficient of Variation 13.9 % (11.5-14.5); RDW Standard Deviation 41.5 fL (36.4-46.3); Red Blood Count 3.78 M/uL (4.20-5.40); White Blood Count 8.66 K/ul (4.8-10.8)
[2023-02-06 11:12] LABS: Basophils # (auto) 0.02 K/uL (0-0.2); Basophils % (auto) 0.2 %; Immature Granulocytes # (auto) 0.04 K/uL (0.01-0.20); Immature Granulocytes % (auto) 0.5 %; Lymphocytes # (auto) 0.42 K/uL (1.2-3.4); Lymphocytes % (auto) 4.8 %; Monocytes # (auto) 0.15 K/uL (0.11-0.59); Monocytes % (auto) 1.7 %; Neutrophils # (auto) 8.03 K/uL (1.40-6.50); Neutrophils % (auto) 92.8 %
[2023-02-06 11:13] LABS: Alanine Aminotransferase 38 U/L (7-52); Albumin Globulin Ratio 1.4 (0.9-2); Alkaline Phosphatase 88 U/L (34-104); Anion Gap 7 (3-11); Aspartate Aminotransferase 29 U/L (13-39); BUN Creatinine Ratio 15.3 (10-20); Bilirubin,Total 0.5 mg/dl (0.2-1.0); Blood Urea Nitrogen 11 mg/dl (6-23); Calcium 8.6 mg/dl (8.6-10.3); Carbon Dioxide 21 mmol/L (21-32); Chloride 111 mmol/L (98-107); Est GFR (African American) 122.3 ml/min; Est GFR (Non-African American) 105.5 ml/min; Globulin 2.9 gm/dl (2.5-4.0); Glucose 147 mg/dl (70-99(Fasting)); Potassium 3.4 mmol/L (3.5-5.1); Sodium 139 mmol/L (136-145); Total Protein 6.9 gm/dl (6.0-8.3); Troponin I High Sensitivity 15.4 pg/ml (0-14)
--- NOTE | 2023-02-06 11:40 | Electrocardiogram Report ---
Test Reason : Blood Pressure : / mmHG Vent. Rate : 090 BPM Atrial Rate : 090 BPM P-R Int : 144 ms QRS Dur : 098 ms QT Int : 450 ms P-R-T Axes : 050 035 165 degrees QTc Int : 550 ms Normal sinus rhythm Possible Left atrial enlargement Prolonged QT Abnormal ECG When compared with ECG of 06-FEB-2023 03:41, No significant change Confirmed by Gilberto Mosher ([id number]) on 02/06/2023 11:39:56 AM Referred By: Shamar Ledezma Confirmed By:Gilberto Mosher
[2023-02-06 12:17] LABS: Appearance Urine Clear (Clear); Bilirubin Urine Negative (Negative); Blood Urine Negative (Negative); Color Urine Yellow; Glucose Urine UA Trace (Negative); Ketones Urine Negative (Negative); Leukocyte Esterase Urine Negative (Negative); Nitrite Urine Negative (Negative); Protein Urine Negative (Negative); Specific Gravity Urine 1.012 (1.000-1.030); Urobilinogen Urine Negative (Negative); pH Urine 7.5 (4.5-7.5)
[2023-02-06] MEDS ORDERED: NIFEdipine EXTENDED REL 30 MG TABCR PO STA (12:39)
[2023-02-06] MEDS ORDERED: Heparin IV Adult Wt-Based Standard WITH Bolus Protocol IV STA (13:10)
[2023-02-06] MEDS ORDERED: HEPARIN SODIUM/DEXTROSE 25,000 UNITS/500 ML BAG IV SCH (13:30)
--- NOTE | 2023-02-06 13:31 | History & Physical Report ---
Date of Service February 06, 2023 Assessment & Plan (1) Shortness of breath: (2) Non-ischemic cardiomyopathy: (3) Preeclampsia complicating hypertension: (4) Hepatitis C: (5) History of drug use: (6) Tobacco use disorder: Plan This is a 37-year-old female with PMH of uncontrolled hypertension, history of IV drug use, hepatitis C untreated, anaphylactic allergy to iodinated contrast, history of preeclampsia,recent delivery 2 mo post- and other medical problems listed below who presents with shortness of breath and chest pain x2 days. SOB Non-ischemic cardiomyopathy cardiomyopathy Acute decompensated HF with reduced EF SOB with associated CP x 2 days in setting of 2 mo post , h/o IV drug use BNP 729, d-dimer 1,050, HS troponin 15 EKG without significant changes from previous UDS positive for marijuana only High suspicion for PE but anaphylactic to contrast. VQ scan, BLE doppler ordered to better evaluate Will dc heparin given likely source of SOB but will resume anticoagulation if finding of DVT/PE on pending workup 2D echo ordered and Dr. Martines called with findings of non-ischemic cardiomyopathy with estimated EF ~ 25% Started on Carvedilol BID, Lasix 40mg IV x 1, daily weights, strict I&O Additional labs ordered, potassium repletion, diuresis, appreciate cardiology input Uncontrolled HTN, non-compliance History of preeclampsia during , has not been taking nifedipine at home since running out Given dose of nifedipine in ED, will need close monitoring of BP, possibly additional antihypertensives Recent delivery, 2 mo post- Not nursing, UPT negative today Tobacco use disorder Offered nicotine patch, declined Hepatitis C Documented previously, untreated Discussed importance of outpatient GI follow-up LFTs normal on admission, repeat tomorrow DVT Ppx: SQ heparin Code status: FULL PCP: [place] Dispo: Admitted to PCU Patient seen in collaboration with Dr. Davison. Please see addendum. I spent a total of 75 minutes coordinating, documenting, and providing care for this patient excluding time spent in the performance of separately billed services. History of Present Illness Chief Complaint: SOB Primary Care Provider: Janey Duncan MD This is a 37-year-old female with PMH of uncontrolled hypertension, history of drug use, hepatitis C recent history of, anaphylactic allergy to iodinated cont rast, history of preeclampsia,recent delivery 2 mo post- and other medical problems listed below who presents with shortness of breath and chest pain x2 days. Patient has an 8-week-old daughter and was complicated by eclampsia without seizure. Was prescribed nifedipine but has not been taking since she ran out a few weeks ago. Does not take any other medications on a scheduled basis. Developed shortness of breath 2 days ago that is constant and exacerbated with movement, also worse when lying flat. Patient endorses an associated chest tightness that is central and radiates towards her back. Denies any fever, chills or known recent sick contacts. No lightheadedness, presyncope, palpitations. Has had some nausea the past 2 days but denies any vomiting or abdominal pain. No longer having bleeding but is unsure if she has had her period yet. Denies any dysuria, hematuria, diarrhea or constipation. History of asthma as a child but not on any inhalers as an adult. Patient was seen in ED overnight and treated with nebulizer which improved shortness of breath. Left AMA because she did not want a further work-up but returned with prompting due to some abnormal lab work. Smoking 0.5-1ppd and drinking alcohol a few times per week. Denies any drug use since having the baby. History of anaphylaxis in response to iodinated contrast dye. Allergies Allergy/AdvReac Type Severity Reaction Status Date / Time shellfish derived Allergy Severe Anaphylaxis Verified 12/05/22 14:09 latex Allergy Mild itching Verified 12/05/22 14:09 Iodinated Contrast Media Allergy Unknown ANAPHYLAXIS Verified 12/05/22 14:09 Home Medications Medication Instructions Recorded Confirmed Type nifedipine 30 mg tablet,extended 30 mg PO DAILY #30 tabs 12/09/22 02/06/23 Rx release 24 hr (Procardia XL) albuterol sulfate 2.5 mg/3 mL 0 mg inhalation DAILY PRN Other 02/06/23 02/06/23 History (0.083 %) solution for nebulization aspirin 81 mg tablet,delayed 81 mg PO DAILY 02/06/23 02/06/23 History release Past Med/Surg History Medical History Cocaine abuse High blood pressure History of drug use Methamphetamine abuse Positive PPD Tobacco use disorder Vaginal delivery (10/06/11) Varicella vaccination Surgical History No pertinent past surgical history Family History Uncle Colorectal cancer Aunt Breast cancer Mother Heart disease Father Heart disease Denies family history of Ovarian cancer Social History Smoking Status: Current every day smoker Tobacco Type: Cigarettes Cigarettes Per Day: 10; Second Hand Exposure: No; Do You Dip or Chew Tobacco: No; Hx Alcohol Use: No Hx Substance Use: Yes Last Used Substance: Days (ago) Last Used Substance Other:: Patient states that she last smoked meth on 12/04/22. Preferred Language: Estonian Communication Ability: Effective Debit Agent Required: No Beliefs That Will Affect Care: None marital status: Legally marital status details: garcia Lowry (48) [phone] Current Living Situation: Significant Other Current Living Situation Comment: Lives with Father of Baby. Her 2 other children live with her mother. current occupational status: unemployed Feels Safe at Home: Yes Assistive Devices: None Review of Systems Review of Systems: At least ten systems reviewed and negative except as noted in the HPI. Physical Exam Physical Exam: Please see Dr. Davison's addendum for physical exam. Results & Data Results & Data Vital Signs (Past 12 Hours) Vital Signs Temp Pulse Pulse Resp BP BP Pulse Ox 02/06/23 13:28 36.7 C 89 20 159/119 H 98 02/06/23 13:28 98 02/06/23 11:07 94 H 18 92 02/06/23 11:03 103 H 18 169/117 H 93 02/06/23 10:15 98 02/06/23 09:51 102 H 02/06/23 09:38 36.7 C 90 20 166/115 H 98 O2 Del Method 02/06/23 13:28 Room Air 02/06/23 13:28 Room Air 02/06/23 11:07 Room Air 02/06/23 11:03 Room Air 02/06/23 10:15 Room Air 02/06/23 09:51 02/06/23 09:38 Room Air Laboratory Results Short CBC 02/06/23 Range/Units 09:59 WBC 8.66 (4.8-10.8) K/ul Hgb 10.2 L (12.0-16.0) g/dl Hct 31.2 L (37.0-47.0) % Plt Count 293 (130-400) K/uL BMP 02/06/23 09:59 Sodium 139 Potassium 3.4 L D Chloride 111 H Carbon Dioxide 21 BUN 11 Creatinine 0.72 Glucose 147 H Calcium 8.6 D Liver Function 02/06/23 Range/Units 09:59 Total Bilirubin 0.5 (0.2-1.0) mg/dl AST 29 (13-39) U/L ALT 38 (7-52) U/L Alkaline Phosphatase 88 (34-104) U/L Albumin 4.0 (3.4-5.0) gm/dl Urine 02/06/23 Range/Units Unknown Urine Color Yellow Urine Appearance Clear (Clear) Urine pH 7.5 (4.5-7.5) Ur Specific [place] 1.012 (1.000-1.030) Urine Protein Negative (Negative) Urine Glucose (UA) Trace H (Negative) ECG Additional Comments: EKG reviewed: Prolonged QT. When compared with ECG of 06-FEB-2023 03:41, No significant change Code Status & VTE Plan VTE Prophylaxis Plan VTE Prophylaxis will be ordered: Yes Supervising Physician Co-Signing Physician Notes Patient was seen and examined at bedside with Trena Kenney PA-C. Chart reviewed. Case discussed with and agree with the documentation above. In summary, this is a 37 year old female 8 weeks with h/o severe preeclampsia, IV drug abuse, tobacco abuse, marijuana use, HCV untreated, asthma, who presented to the ED yesterday with SOB and pleuritic chest pain but left AMA and was called today due to abnormal labs (elevated D dimer). During our encounter, patient was sitting comfortably in bed, on room air, not in acute distress. Still with some shortness of breath with chest tightness, pleuritic and worse on lying down. Also complains of LE cramps. H/o asthma as child but no exacerbation noted. Smokes 1/2-1 ppd. Denies recent drug abuse. No personal or family history of bleeding or clotting disorder although she states she had what seems to be superficial thrombophlebitis while using iv drugs. Vitals stable. Labs reviewed. D dimer elevated, trop elevated, EKG with T wave changes in anterolat leads, BNP elevated. Echo showed EF 25% with severe global hypokinesia and grade II diastolic dysfunction (changed from echo in November 2022 which showed EF of 60-65%). UDS negative except for marijuana. US LE negative for DVT. VQ scan shows low probability for PE. 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 Will replete potassium and give 1 dose of iv lasix. Reassess volume status tomorrow for more iv lasix. Repeat labs in am along with serial trop and telemetry. Monitor I and Os and strict weight. Cardiology consulted. Will need to initiate goal directed medical therapy for her cardiomyopathy as tolerated. UPT negative. States she is not breast feeding, so that should not be an issue. Needs adequate control of her BP- ACEI or ARB or ARNI will be a better option rather than CCB given her NICM. Rest as per the note above On exam- General: Sitting comfortably in bed, not in distress, on room air HEENT: EOMI, DEMOND, MMM Chest: Clear breath sounds bilaterally, no wheezes or crackles CVS: Regular rate and rhythm, normal heart sounds, no murmur Abdomen: Soft, non tender, not distended, normal bowel sounds Neuro: Awake, alert, oriented, conversing well, non focal Extremities: No cyanosis, clubbing or edema
[2023-02-06 13:35] LABS: Amphetamines+Metham, Urine Neg (Neg); Barbiturates, Urine Neg (Neg); Benzodiazepine, Urine Neg (Neg); Cocaine, Urine Neg (Neg); MDMA (Ecstacy), Urine Neg (Neg); Methadone, Urine Neg (Neg); Opiate, Urine Neg (Neg); Phencyclidine, Urine Neg (Neg)
[2023-02-06 13:48] LABS: Pregnancy Test, Urine Negative (Negative)
[2023-02-06 14:00] LABS: Lipase 8 U/L (11-82); Magnesium 1.8 mg/dl (1.7-2.4)
[2023-02-06] MEDS ORDERED: HEPARIN SOD (PORCINE) 1000 UNIT/ML IV ONE (14:00)
[2023-02-06 15:01] LABS: Partial Thromboplastin Ratio 1.2; Partial Thromboplastin Time 32.8 Seconds (21.0-31.0)
--- NOTE | 2023-02-06 15:16 | Ultrasound Report ---
BILATERAL LOWER EXTREMITY VENOUS DOPPLER CLINICAL HISTORY: Elevated d-dimer. Shortness of breath. COMPARISON STUDY: Right lower extremity venous Doppler ultrasound April 04, 2010. TECHNIQUE: Sonography of the deep venous system of the bilateral lower extremities was performed. Co mpression and augmentation were evaluated. FINDINGS: The bilateral common femoral, superficial femoral and popliteal veins were compressible. A ugmentation was normal. Flow was shown within the deep calf vessels. IMPRESSION: No evidence of deep venous thrombus within the bilateral lower extremities. ACT 112: Negative or not required by law. Electronically signed by: Juan Daniel Lynn M.D. 02/06/2023 3:15 PM
[2023-02-06] MEDS ORDERED: POTASSIUM CHLORIDE CRTAB 20 MEQ TABCR PO STA (16:08)
[2023-02-06] MEDS ORDERED: FUROSEMIDE 40 MG/4 ML VIAL IV ONE (16:09)
[2023-02-06] MEDS ORDERED: carvediloL 3.125 MG TAB PO ONE (16:15)
--- NOTE | 2023-02-06 16:23 | Cardiology Consultation ---
Date of Consultation February 06, 2023 Assessment & Plan (1) Acute heart failure with reduced ejection fraction and diastolic dysfunction: -Patient presents with newly recognized acute heart failure with reduced ejection fraction. -Echocardiogram today revealed moderate concentric left ventricular hypertrophy with severe global left ventricular hypokinesis, left ventricular ejection fraction was severely reduced at 25%. Trace mitral regurgitation present. Grade related to diastolic dysfunction noted consistent with elevated filling pressures. Compared to the images obtained at the time of the previous echocardiogram performed 11/14/2022, there has been a severe decline in the left ventricular ejection fraction which had been 60 to 65% at that time. -With regards to the cause of her cardiomyopathy, peripartum cardiomyopathy is a possibility with recent delivery in November, perhaps related to uncontrolled hypertension, and she has had a history of substance abuse. Cocaine metabolite noted on previous toxicology screen in November, negative today. Methamphetamine noted in November, which was negative today. Today's toxicology screen only positive for marijuana. Patient states she has not used methamphetamine since November. -She is noted to have ongoing anemia, hemoglobin 10.2 today. I believe she is mildly volume overloaded, but not severely volume overloaded. Potassium level as measured this morning at 430 was 2.5, increased to 3.4 as of 02/06/2023. She is due for a repeat dose of 40 mill equivalents of potassium chloride and is to then receive a dose of IV furosemide. -I ordered her next dose of potassium chloride 20 mill equivalents to take place tonight at 1800 patient received a dose of nifedipine 30 mg earlier today prior to to her echocardiogram. Blood pressure still remains above goal. We will start carvedilol 3.125 mg first dose this evening, next dose tomorrow. She has had to have a test to this presentation, and avoid order this. If if test is negative, and kidney function and potassium levels are stable tomorrow we will plan on adding Entresto tomorrow. Patient noted to have an elevated D-dimer of 1050. She is a poor candidate for CT angiogram due to reported anaphylaxis with iodine contrast in the past and therefore a nuclear medicine perfusion scan is tentatively scheduled. I spoke to the nuclear reactor operator and this is to occur within a short time lower extremity venous duplex study is also ordered by the admitting team. Alth ough I think we have a cause for her shortness of breath, given suspected stasis in the setting of cardiomyopathy, I think work-up for venous thrombolic embolic disease is certainly indicated given the elevated D-dimer. Patient counseled with regards to the need of avoiding pending further work-up and treatment of her cardiomyopathy. History of Present Illness Attending Physician: Ehsan Davison MD History of Present Illness Eve Goncalves is a 37-year-old black female seen in cardiology consultation per the request of Trena Kenney PA-C and Dr Davison for the evaluation of shortness of breath and newly recognized severe left ventricular systolic dysfunction on echocardiography. Her history is notable for recent with labor induced in Nov, 2022 in the setting of preeclampsia and positive toxicology screen with methamphetamine use noted at that time. She delivered vaginally at 35 weeks having been admitted with hypertension and multiple blood pressure readings in the 150s over 100s. This had been her third , in addition to her daughter that was born on 12/06/2022 she has 2 additional children at home ages 10 and 13. She describes shortness of breath that really started bothering her yesterday. She had initially presented to the emergency department on 02/06/2023 with initial vital signs having been taken at 3:32 AM including a blood pressure of 168/117 at that time. She subsequently left the emergency room AGAINST MEDICAL ADVICE, but was urged to return due to laboratory abnormalities including elevated D-dimer. At the time of my evaluation she was in no acute distress was sleeping with her head at a 30 degree angle. She states that yesterday she had difficulty lying flat. She has noted intermittent lower extremity edema during her recent but none today. She denies any chest discomfort, lightheadedness, dizziness or syncope. Family History: Notable for hypertension dyslipidemia and heart murmur in both of her parents. Additional details unknown She believes she has aunts and uncles with history of coronary heart disease, additional details unknown Social History: Lives with her 3 children and boyfriend. Toxicology screen in Nov, 2022 was notable for methamphetamine, repeat performed this presentation was only positive for marijuana Allergies Allergy/AdvReac Type Severity Reaction Status Date / Time shellfish derived Allergy Severe Anaphylaxis Verified 12/05/22 14:09 latex Allergy Mild itching Verified 12/05/22 14:09 Iodinated Contrast Media Allergy Unknown ANAPHYLAXIS Verified 12/05/22 14:09 Home Medications Medication Instructions Recorded Confirmed Type nifedipine 30 mg tablet,extended 30 mg PO DAILY #30 tabs 12/09/22 02/06/23 Rx release 24 hr (Procardia XL) albuterol sulfate 2.5 mg/3 mL 0 mg inhalation DAILY PRN Other 02/06/23 02/06/23 History (0.083 %) solution for nebulization aspirin 81 mg tablet,delayed 81 mg PO DAILY 02/06/23 02/06/23 History release Patient History Medical History Cocaine abuse High blood pressure History of drug use Methamphetamine abuse Positive PPD Tobacco use disorder Vaginal delivery (10/06/11) Varicella vaccination Surgical History No pertinent past surgical history Family History Uncle Colorectal cancer Aunt Breast cancer Mother Heart disease Father Heart disease Denies family history of Ovarian cancer Social History Smoking Status: Current every day smoker Tobacco Type: Cigarettes Cigarettes Per Day: 10; Second Hand Exposure: No; Do You Dip or Chew Tobacco: No; Hx Alcohol Use: No Hx Substance Use: Yes Last Used Substance: Days (ago) Last Used Substance Other:: Patient states that she last smoked meth on 12/04/22. Preferred Language: Syriac Communication Ability: Effective Cosmetic Counselor Required: No Beliefs That Will Affect Care: None marital status: Legally marital status details: garcia Lowry (48) [phone] Current Living Situation: Significant Other Current Living Situation Comment: Lives with Father of Baby. Her 2 other children live with her mother. current occupational status: unemployed Feels Safe at Home: Yes Assistive Devices: None Review of Systems Review of Systems: All systems reviewed & are unremarkable except as noted in HPI & below Physical Exam Physical Exam: Temp Pulse Resp BP Pulse Ox O2 Del Method 36.7 C 87 20 163/119 H 95 Room Air 02/06/23 13:28 02/06/23 16:23 02/06/23 16:23 02/06/23 16:23 02/06/23 16:23 02/06/23 16:23 Constitutional: WD/WN, vitals as above Eyes: PERRL, conjunctivae normal, anicteric sclerae Respiratory: normal respiratory effort, lungs clear to auscultation Cardiovascular: RRR, no murmur, no edema Gastrointestinal (Abdomen): normal bowel sounds, soft, nontender, no hepatosplenomegaly Skin: no rashes, warm and dry Neurologic: PERRL, EOMI, accommodation nl, no face palsy, no dysarthria Results & Data Vital Signs (Past 12 Hours) Vital Signs Temp Pulse Pulse Resp BP BP Pulse Ox 02/06/23 15:05 88 19 154/115 H 95 02/06/23 14:00 71 02/06/23 13:28 36.7 C 89 20 159/119 H 98 02/06/23 13:28 98 02/06/23 11:07 94 H 18 92 02/06/23 11:03 103 H 18 169/117 H 93 02/06/23 10:15 98 02/06/23 09:51 102 H 02/06/23 09:38 36.7 C 90 20 166/115 H 98 O2 Del Method 02/06/23 15:05 Room Air 02/06/23 14:00 02/06/23 13:28 Room Air 02/06/23 13:28 Room Air 02/06/23 11:07 Room Air 02/06/23 11:03 Room Air 02/06/23 10:15 Room Air 02/06/23 09:51 02/06/23 09:38 Room Air Laboratory Results Cardiac Enzymes 02/06/23 02/06/23 Range/Units 09:59 09:59 AST 29 (13-39) U/L Troponin I High Sens Cancelled 15.4 H D Coagulation 02/06/23 Range/Units 14:02 APTT 32.8 H (21.0-31.0) Seconds CBC 02/06/23 Range/Units 09:59 WBC 8.66 (4.8-10.8) K/ul RBC 3.78 L (4.20-5.40) M/uL Hgb 10.2 L (12.0-16.0) g/dl Hct 31.2 L (37.0-47.0) % Plt Count 293 (130-400) K/uL Neut # (Auto) 8.03 H (1.40-6.50) K/uL Lymph # (Auto) 0.42 L (1.2-3.4) K/uL [place] # (Auto) 0.15 (0.11-0.59) K/uL Eos # (Auto) 0.00 (0-0.50) K/uL Baso # (Auto) 0.02 (0-0.2) K/uL Comprehensive Metabolic Panel 02/06/23 Range/Units 09:59 Sodium 139 (136-145) mmol/L Potassium 3.4 L D (3.5-5.1) mmol/L Chloride 111 H (98-107) mmol/L Carbon Dioxide 21 (21-32) mmol/L BUN 11 (6-23) mg/dl Creatinine 0.72 (0.6-1.2) mg/dl Glucose 147 H (70-99(Fasting)) mg/dl Calcium 8.6 D (8.6-10.3) mg/dl AST 29 (13-39) U/L ALT 38 (7-52) U/L Alkaline Phosphatase 88 (34-104) U/L Total Protein 6.9 D (6.0-8.3) gm/dl Albumin 4.0 (3.4-5.0) gm/dl Diagnostic Findings EKG performed 02/06/2023 at 3:41 AM revealed normal sinus rhythm at 94 bpm, T wave inversions noted in the lateral leads which are new compared to 2013. Repeat EKG performed 02/06/2023: Normal sinus rhythm at 90 bpm, ongoing lateral T wave inversions in lead I, aVL, and V4-V6 unchanged compared to the previous
--- NOTE | 2023-02-06 17:15 | Nuclear Medicine Report ---
NM pul perfusion HISTORY: 37 years-old Female SOB, high susp. PE acute shortness of breath COMPARISON: Chest radiograph of same day TECHNIQUE: Pulmonary perfusion study was obtained following the intravenous administration of 5.4 mCi technetium 99 MAA FINDINGS: No ventilation component was obtained secondary to ongoing droplet precautions. Chest radiograph obta ined same day demonstrates cardiomegaly with mixed interstitial and alveolar opacities and trace pleu ral effusions. No large segmental perfusion defects. IMPRESSION: Low probability for pulmonary embolus. ACT 112: Negative or not required by law. The above report was generated using voice recognition software. It may contain grammatical, syntax o r spelling errors. Electronically signed by: Daniel Solis M.D. 02/06/2023 5:13 PM
[2023-02-06 17:17] LABS: Ferritin 8.7 ng/ml (8-388)
[2023-02-06] MEDS ORDERED: POTASSIUM CHLORIDE CRTAB 20 MEQ TABCR PO ONE (18:00)
[2023-02-06] MEDS ORDERED: ONDANSETRON INJ 2 MG/ML 2 ML VIAL IV PRN (18:35)
[2023-02-06] MEDS ORDERED: ACETAMINOPHEN 325 MG TAB PO PRN (18:35)
[2023-02-06] MEDS ORDERED: POLYETHYLENE (MIRALAX) 17 GM PACK PO PRN (18:35)
[2023-02-06] MEDS ORDERED: PNEUMOCOCCAL POLYSACCHARIDES 25 MCG/0.5 ML VIAL/SYR IM ONE (20:25)
[2023-02-06] MEDS: NICOTINE 14 MG/24 HR PATCH TD SCH (23:33)
[2023-02-07 06:57] LABS: Hematocrit (blood only) 31.3 % (37.0-47.0); Hemoglobin 10.5 g/dl (12.0-16.0); Mean Corpuscular Hemoglobin 26.6 pg (25.0-34.0); Mean Corpuscular Hgb Conc 33.5 g/dL (32.0-36.0); Mean Corpuscular Volume 79.4 fL (80.0-100.0); Platelet Count 328 K/uL (130-400); RDW Coefficient of Variation 13.8 % (11.5-14.5); RDW Standard Deviation 39.8 fL (36.4-46.3); Red Blood Count 3.94 M/uL (4.20-5.40); White Blood Count 10.42 K/ul (4.8-10.8)
[2023-02-07 07:21] LABS: Albumin Globulin Ratio 1.3 (0.9-2); Albumin Level 3.9 gm/dl (3.4-5.0); BUN Creatinine Ratio 17.8 (10-20); Bilirubin,Total 0.5 mg/dl (0.2-1.0); Calcium 8.9 mg/dl (8.6-10.3); Creatinine Clr Calc Pharmacy 100.6 ml/min; Est GFR (African American) 120.2 ml/min; Est GFR (Non-African American) 103.7 ml/min; Globulin 2.9 gm/dl (2.5-4.0); Potassium 3.6 mmol/L (3.5-5.1); Total Protein 6.8 gm/dl (6.0-8.3)
[2023-02-07] MEDS ORDERED: POTASSIUM CHLORIDE CRTAB 20 MEQ TABCR PO STA (08:32)
[2023-02-07] MEDS ORDERED: FUROSEMIDE INJ 20 MG/2 ML VIAL IV ONE (08:32)
[2023-02-07] MEDS: NICOTINE 14 MG/24 HR PATCH TD SCH (08:33)
[2023-02-07] MEDS: carvediloL 3.125 MG TAB PO SCH ×2 (08:34→16:58)
[2023-02-07] MEDS: POTASSIUM CHLORIDE CRTAB 20 MEQ TABCR PO SCH (08:34)
[2023-02-07] MEDS: ENOXAPARIN INJ 40 MG/0.4 ML SYR SQ SCH (08:35)
[2023-02-07] MEDS ORDERED: NIFEdipine EXTENDED REL 30 MG TABCR PO SCH (09:00)
[2023-02-07] MEDS: SPIRONOLACTONE 12.5 MG TAB PO SCH (10:08)
[2023-02-07] MEDS: VALSARTAN/SACUBITRIL 26/24MG TAB PO SCH ×2 (10:09→21:32)
--- NOTE | 2023-02-07 11:08 | Electrocardiogram Report ---
Test Reason : Blood Pressure : / mmHG Vent. Rate : 100 BPM Atrial Rate : 100 BPM P-R Int : 138 ms QRS Dur : 098 ms QT Int : 400 ms P-R-T Axes : 059 064 148 degrees QTc Int : 516 ms Normal sinus rhythm Left atrial enlargement Left ventricular hypertrophy T wave abnormality, consider anterolateral ischemia Prolonged QT Abnormal ECG When compared with ECG of 06-FEB-2023 09:48, No significant change was found Confirmed by Gilberto Mosher ([id number]) on 02/07/2023 11:08:05 AM Referred By: Shamar Ledezma Confirmed By:Gilberto Mosher
--- NOTE | 2023-02-07 12:50 | Hospitalist Progress Note ---
Date of Service February 07, 2023 Assessment & Plan (1) Shortness of breath: (2) Non-ischemic cardiomyopathy: (3) Preeclampsia complicating hypertension: (4) Hepatitis C: (5) History of drug use: (6) Tobacco use disorder: Plan 37-year-old female with PMH of uncontrolled hypertension, history of IV drug use, hepatitis C untreated, anaphylactic allergy to iodinated contrast, history of preeclampsia, recent delivery 2 mo post- and other medical problems listed below who presents with shortness of breath and chest pain x2 days. 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 EKG without significant changes from previous . UDS positive for marijuana . High suspicion for PE but anaphylactic to contrast. VQ scan, BLE doppler with low probability of PE/no DVT. Echo with EF of 25%, moderate concentric LVH, grade 2 diastolic dysfunction, severe global hypokinesis of the left ventricle. Cardiology on board, patient undergoing guideline directed medical therapy optimization. Diuresis, daily weights, strict I&O Monitor replete electrolytes. Uncontrolled HTN, non-compliance History of preeclampsia during , has not been taking nifedipine at home since running out Given dose of nifedipine in ED, will need close monitoring of BP, undergoing GDMT, blood pressure getting better Recent delivery, 2 mo post- : Not nursing, UPT negative at admission Tobacco use disorder: Offered nicotine patch, declined Hepatitis C: Documented previously, untreated . Discussed importance of outpatient GI follow-up . LFTs normal on admission. repeat LFT normal. DVT Ppx: SQ heparin Code status: FULL PCP: [place] Dispo: Admitted to PCU Admission and Anticipated Discharge Date Admission Date: February 06, 2023 Subjective Patient seen and examined at bedside as a follow-up of nonischemic cardiomyopathy, cardiomyopathy, acute decompensated heart failure with reduced ejection fraction, uncontrolled hypertension. Patient was sitting up in bed, on room air, NAD, reports occasional chest tightness and shortness of breath even while lying around, denies headache or dizziness or flulike illness or cough. Reports eating okay and moving bowels okay. Physical Exam Physical Exam: GENERAL: Alert and oriented x3. NAD, on RA. HEENT: No pallor, no icterus. Pupils equal, round and reactive to light. Oral mucosa moist. NECK: No JVD, no neck masses. HEART: S1 and S2 heard. Regular rate and rhythm. No murmur, no gallop. RESPIRATORY SYSTEM: Normal AP diameter. No accessory muscle use. No wheezing, no crackles. ABDOMEN: Soft, bowel sounds present, nontender, no distention. CENTRAL NERVOUS SYSTEM: No facial droop. Speech is clear. Obeys simple commands. Moves extremities. EXTREMITIES: No edema, no erythema seen. Results & Data Results & Data Vital Signs (Past 12 Hours) Vital Signs Temp Pulse Pulse Resp BP Pulse Ox O2 Del Method 02/07/23 11:35 36.9 C 100 H 18 127/86 97 Room Air 02/07/23 10:33 99 H 02/07/23 09:52 Room Air 02/07/23 07:53 37.1 C 96 H 17 152/106 H 97 Room Air 02/07/23 03:02 36.9 C 90 22 151/105 H 95 Room Air
--- NOTE | 2023-02-07 13:53 | Cardiology Progress Note ---
Date of Service February 07, 2023 Assessment & Plan (1) Acute heart failure with reduced ejection fraction and diastolic dysf unction: Plan: -Patient presents with newly recognized acute heart failure with reduced ejection fraction. -Differential diagnosis includes peripartum cardiomyopathy, cardiomyopathy due to uncontrolled hypertension, or related to illicit drug use. She does have a history of past cocaine use which can cause accelerated coronary heart disease but her presentation is certainly suggestive of a nonischemic cardiomyopathy. -Echocardiogram today revealed moderate concentric left ventricular hypertrophy with severe global left ventricular hypokinesis, left ventricular ejection fraction was severely reduced at 25%. Trace mitral regurgitation present. Grade related to diastolic dysfunction noted consistent with elevated filling pressures. Compared to the images obtained at the time of the previous echocardiogram performed 11/14/2022, there has been a severe decline in the left ventricular ejection fraction which had been 60 to 65% at that time. Lower extremity venous duplex and VQ scan are negative. Iron deficiency noted. Medical therapy: Carvedilol 3.125 mg BID, add Entresto, spironolactone 12.5 mg daily. DC Nifedipine. Lasix 20 IV x 1. Iron sulfate supplementation. Anticipate need for LifeVest at discharge. Order completed. DVT prophylaxis: Lovenox Admission and Anticipated Discharge Date Admission Date: February 06, 2023 Subjective Patient seen in cardiology follow up. Notes shortness of breath is improved. Denies chest pain. Telemetry reveals sinus tachycardia at 100-105 bpm. Physical Exam Constitutional: WD/WN, vitals as above Eyes: PERRL, conjunctivae normal, anicteric sclerae Respiratory: normal respiratory effort, lungs clear to auscultation Cardiovascular: RRR, no murmur, no edema Gastrointestinal (Abdomen): normal bowel sounds, soft, nontender, no hepatosplenomegaly Skin: no rashes, warm and dry Neurologic: PERRL, EOMI, accommodation nl, no face palsy, no dysarthria Results & Data Vital Signs (Past 12 Hours) Vital Signs Temp Pulse Pulse Resp BP Pulse Ox O2 Del Method 02/07/23 11:35 36.9 C 100 H 18 127/86 97 Room Air 02/07/23 10:33 99 H 02/07/23 09:52 Room Air 02/07/23 07:53 37.1 C 96 H 17 152/106 H 97 Room Air 02/07/23 03:02 36.9 C 90 22 151/105 H 95 Room Air
--- NOTE | 2023-02-07 21:11 | Emergency Department Note ---
ED Provider Note History of Present Illness Chief Complaint: Shortness of Breath/Dyspnea Stated Complaint: ER DOCTOR CALLED HER TO COME BACK; SOB Time Seen by Provider: 02/06/23 09:58 Source: patient Mode of arrival: ambulatory Limitations: no limitations This patient is a 37-year-old female who presents to the emergency department for evaluation of shortness of breath. Patient was seen here last night for the same symptoms and left AMA at that time. She was called back due to abnormal labs and strongly encouraged to come back to the ER. Patient notes that she has had some shortness of breath which started yesterday after an appointment. She is having a hard time lying flat due to shortness of breath. She states that the nebulizer treatments seemed to help somewhat. Patient does have a history of cardiomegaly and had echocardiograms done during her . She is about 2 months . She denies recent fever/cough, or leg pain/swelling. Home Medications Medication Instructions Recorded Confirmed Type nifedipine 30 mg tablet,extended 30 mg PO DAILY #30 tabs 12/09/22 02/06/23 Rx release 24 hr (Procardia XL) Allergies Allergy/AdvReac Type Severity Reaction Status Date / Time shellfish derived Allergy Severe Anaphylaxis Verified 12/05/22 14:09 latex Allergy Mild itching Verified 12/05/22 14:09 Iodinated Contrast Media Allergy Unknown ANAPHYLAXIS Verified 12/05/22 14:09 Past Med/Surg History Medical History Cocaine abuse High blood pressure History of drug use Methamphetamine abuse Positive PPD Tobacco use disorder Vaginal delivery (10/06/11) Varicella vaccination Surgical History No pertinent past surgical history Family History Uncle Colorectal cancer Aunt Breast cancer Mother Heart disease Father Heart disease Denies family history of Ovarian cancer Social History Smoking Status: Light tobacco smoker Tobacco Type: Cigarettes Cigarettes Per Day: 10; Second Hand Exposure: No; Do You Dip or Chew Tobacco: No; Tobacco Cessation Education Requested by Patient: No Hx Alcohol Use: Yes Alcohol type: beer and hard liquor Hx Substance Use: No Preferred Language: [place]ese Communication Ability: Effective Swatch Folder Required: No Beliefs That Will Affect Care: None marital status: Legally marital status details: garcia Lowry (46) [phone] Current Living Situation: Family and Significant Other Current Living Situation Comment: Lives with Father of Baby. Her 2 other children live with her mother. current occupational status: unemployed Other Information That Helps Us Care for You: No Feels Safe at Home: Yes Safety Concerns: Feels Safe At This Time Assistive Devices: None Physical Exam VITALS: Vitals are noted on the nurse's note and reviewed by myself. GENERAL: This is a 37-year-old female, in no acute distress, well-developed well-nourished. SKIN: The skin was without rashes. EARS: External auditory canals clear, tympanic membranes pearly díaz without erythema or effusion bilaterally. EYES: Pupils equal round and reactive to light and accommodation. MOUTH: Mucous membranes moist. NECK: Supple without nuchal rigidity. HEART: Regular rate and rhythm without murmurs gallops or rubs. LUNGS: Clear to auscultation bilaterally without wheezes, rales or rhonchi. No retractions or accessory muscle use. EXTREMITIES: No pitting edema noted to the lower extremities. NEURO: Patient was alert and oriented to person place and time. Course Administered Medications Carvedilol (Carvedilol 3.125 Mg Tab) 3.125 mg PO BIDM [facility] Stop: 03/09/23 07:59 Last Admin: 02/07/23 16:58 Dose: 3.125 mg Documented By: Admin: 02/07/23 08:34 Dose: 3.125 mg Documented By: DELORES Enoxaparin Sodium (Enoxaparin Inj 40 Mg/0.4 Ml Syr) 40 mg SQ QAM [facility] Stop: 03/09/23 08:59 Last Admin: 02/07/23 08:35 Dose: 40 mg Documented By: DELORES Miscellaneous (Remove Nicoderm Patch) 1 each N/A DAILY@0859 [facility] Stop: 03/09/23 08:58 Last Admin: 02/07/23 08:35 Dose: 1 each Documented By: DELORES Nicotine (Nicotine 14 Mg/24 Hr Patch) 14 mg TD DAILY [facility] Stop: 03/08/23 20:04 Last Admin: 02/07/23 08:33 Dose: 14 mg Documented By: Admin: 02/06/23 23:33 Dose: 14 mg Documented By: SARAH Potassium Chloride (Potassium Chloride Crtab 20 Meq Tabcr) 40 meq PO DAILY [facility] Stop: 03/09/23 08:59 Last Admin: 02/07/23 08:34 Dose: 40 meq Documented By: DELORES Sacubitril/Valsartan (Valsartan/Sacubitril 26/24mg Tab) 1 tab PO BID [facility] Stop: 03/09/23 08:59 Last Admin: 02/07/23 10:09 Dose: 1 tab Documented By: DELORES Spironolactone (Spironolactone 12.5 Mg Tab) 12.5 mg PO DAILY [facility] Stop: 03/09/23 08:59 Last Admin: 02/07/23 10:08 Dose: 12.5 mg Documented By: DELORES Discontinued Medications Carvedilol (Carvedilol 3.125 Mg Tab) 3.125 mg PO NOW ONE Stop: 02/06/23 16:16 Last Admin: 02/06/23 16:47 Dose: 3.125 mg Documented By: ANTONIA Furosemide (Furosemide 40 Mg/4 Ml Vial) 40 mg IV ONE ONE Stop: 02/06/23 16:10 Last Admin: 02/06/23 16:19 Dose: 40 mg Documented By: ANTONIA Furosemide (Furosemide Inj 20 Mg/2 Ml Vial) 20 mg IV ONE ONE Stop: 02/07/23 08:33 Last Admin: 02/07/23 10:10 Dose: 20 mg Documented By: DELORES Heparin Sodium (Porcine) (Heparin Sod (Porcine) 1000 Unit/Ml) 5,000 units IV NOW ONE Stop: 02/06/23 14:01 Last Admin: 02/06/23 15:24 Dose: Not Given Documented By: ANTONIA Heparin Sodium/Dextrose (Heparin Sodium/Dextrose) 25,000 units in 500 mls @ 24 mls/hr IV .[id number] [facility]; Protocol Stop: 03/08/23 13:29 Last Admin: 02/06/23 15:24 Dose: Not Given Documented By: ANTONIA Nifedipine (Nifedipine Extended Rel 30 Mg Tabcr) 30 mg PO NOW STA Stop: 02/06/23 12:40 Last Admin: 02/06/23 13:05 Dose: 30 mg Documented By: ANTONIA Pneumococcal Polyvalent Vaccine (Pneumococcal Polysaccharides 25 Mcg/0.5 Ml Vial/Syr) 25 mcg IM .ONCE ONE Stop: 02/06/23 20:26 Last Admin: 02/06/23 21:42 Dose: Not Given Documented By: SARAH Potassium Chloride (Potassium Chloride Crtab 20 Meq Tabcr) 40 meq PO ONE STA Stop: 02/06/23 16:09 Last Admin: 02/06/23 16:20 Dose: 40 meq Documented By: ANTONIA Potassium Chloride (Potassium Chloride Crtab 20 Meq Tabcr) 20 meq PO ONE ONE Stop: 02/06/23 18:01 Last Admin: 02/06/23 18:17 Dose: 20 meq Documented By: ANTONIA Potassium Chloride (Potassium Chloride Crtab 20 Meq Tabcr) 20 meq PO NOW STA Stop: 02/07/23 08:33 Last Admin: 02/07/23 10:08 Dose: 20 meq Documented By: DELORES Medical Decision Making Differential Diagnosis Reactive airway disease, pneumonia, pneumothorax, COPD, CHF, infections, cardiac ischemia, pulmonary embolism, musculoskeletal, gastrointestinal, as well as other pathologies. Home Medications was personally reviewed by me Laboratory Data Attestation: I reviewed the patient's lab results. 02/07/23 06:18 02/07/23 06:18 Lab Results 02/06/23 02/06/23 02/06/23 Range/Units 09:59 09:59 09:59 WBC 8.66 (4.8-10.8) K/ul RBC 3.78 L (4.20-5.40) M/uL Hgb 10.2 L (12.0-16.0) g/dl Hct 31.2 L (37.0-47.0) % MCV 82.5 (80.0-100.0) fL MCH 27.0 (25.0-34.0) pg MCHC 32.7 (32.0-36.0) g/dL RDW Std Deviation 41.5 (36.4-46.3) fL RDW Coeff of Pam 13.9 (11.5-14.5) % Plt Count 293 (130-400) K/uL MPV 11.1 (9.4-12.4) fL Immature Gran % (Auto) 0.5 % Neut % (Auto) 92.8 % Lymph % (Auto) 4.8 % [place] % (Auto) 1.7 % Eos % (Auto) 0.0 % Baso % (Auto) 0.2 % Neut # (Auto) 8.03 H (1.40-6.50) K/uL Lymph # (Auto) 0.42 L (1.2-3.4) K/uL [place] # (Auto) 0.15 (0.11-0.59) K/uL Eos # (Auto) 0.00 (0-0.50) K/uL Baso # (Auto) 0.02 (0-0.2) K/uL Immature Gran # (Auto) 0.04 (0.01-0.20) K/uL Sodium 139 (136-145) mmol/L Potassium 3.4 L D (3.5-5.1) mmol/L Chloride 111 H (98-107) mmol/L Carbon Dioxide 21 (21-32) mmol/L Anion Gap 7 (3-11) BUN 11 (6-23) mg/dl Creatinine 0.72 (0.6-1.2) mg/dl Est Cr Clr Drug Dosing Not Reportable Est GFR ( Amer) 122.3 ml/min Est GFR (Non-Af Amer) 105.5 ml/min BUN/Creatinine Ratio 15.3 (10-20) Glucose 147 H (70-99(Fasting)) mg/dl Calcium 8.6 D (8.6-10.3) mg/dl Magnesium 1.8 (1.7-2.4) mg/dl Iron Cancelled TIBC Cancelled Unsaturated IBC Cancelled Transferrin % Sat Cancelled Ferritin Cancelled Total Bilirubin 0.5 (0.2-1.0) mg/dl AST 29 (13-39) U/L ALT 38 (7-52) U/L Alkaline Phosphatase 88 (34-104) U/L Troponin I High Sens Cancelled 15.4 H D Total Protein 6.9 D (6.0-8.3) gm/dl Albumin 4.0 (3.4-5.0) gm/dl Globulin 2.9 (2.5-4.0) gm/dl Albumin/Globulin Ratio 1.4 (0.9-2) Lipase 8 L (11-82) U/L Urine Opiates Screen (Neg) Ur Methadone, Qual (Neg) Urine Barbiturates (Neg) Ur Phencyclidine (PCP) (Neg) U Amphetamin/Meth Scrn (Neg) MDMA (Ecstasy) Screen (Neg) U Benzodiazepines Scrn (Neg) Ur Cocaine Metabolite (Neg) U Marijuana (THC) Screen (Neg) 02/06/23 Range/Units 12:04 WBC (4.8-10.8) K/ul RBC (4.20-5.40) M/uL Hgb (12.0-16.0) g/dl Hct (37.0-47.0) % MCV (80.0-100.0) fL MCH (25.0-34.0) pg MCHC (32.0-36.0) g/dL RDW Std Deviation (36.4-46.3) fL RDW Coeff of Pam (11.5-14.5) % Plt Count (130-400) K/uL MPV (9.4-12.4) fL Immature Gran % (Auto) % Neut % (Auto) % Lymph % (Auto) % [place] % (Auto) % Eos % (Auto) % Baso % (Auto) % Neut # (Auto) (1.40-6.50) K/uL Lymph # (Auto) (1.2-3.4) K/uL [place] # (Auto) (0.11-0.59) K/uL Eos # (Auto) (0-0.50) K/uL Baso # (Auto) (0-0.2) K/uL Immature Gran # (Auto) (0.01-0.20) K/uL Sodium (136-145) mmol/L Potassium (3.5-5.1) mmol/L Chloride (98-107) mmol/L Carbon Dioxide (21-32) mmol/L Anion Gap (3-11) BUN (6-23) mg/dl Creatinine (0.6-1.2) mg/dl Est Cr Clr Drug Dosing Est GFR ( Amer) ml/min Est GFR (Non-Af Amer) ml/min BUN/Creatinine Ratio (10-20) Glucose (70-99(Fasting)) mg/dl Calcium (8.6-10.3) mg/dl Magnesium (1.7-2.4) mg/dl Iron TIBC Unsaturated IBC Transferrin % Sat Ferritin Total Bilirubin (0.2-1.0) mg/dl AST (13-39) U/L ALT (7-52) U/L Alkaline Phosphatase (34-104) U/L Troponin I High Sens Total Protein (6.0-8.3) gm/dl Albumin (3.4-5.0) gm/dl Globulin (2.5-4.0) gm/dl Albumin/Globulin Ratio (0.9-2) Lipase (11-82) U/L Urine Opiates Screen Neg (Neg) Ur Methadone, Qual Neg (Neg) Urine Barbiturates Neg (Neg) Ur Phencyclidine (PCP) Neg (Neg) U Amphetamin/Meth Scrn Neg (Neg) MDMA (Ecstasy) Screen Neg (Neg) U Benzodiazepines Scrn Neg (Neg) Ur Cocaine Metabolite Neg (Neg) U Marijuana (THC) Screen Pos H (Neg) MDM Narrative This patient is a 37-year-old female who presents to the emergency department after being seen last night and leaving AGAINST MEDICAL ADVICE. At that time patient had some significant laboratory abnormalities, however blood had hemolyzed and so it is unclear whether these are accurate or not. Labs redrawn here and show improvement, patient no longer has a significant hypokalemia. She is anemic with a hemoglobin of 10.2, although this has improved from prior labs. Troponin is very slightly elevated at 15.4. D-dimer overnight had been high, however patient has an anaphylactic reaction to CT dye therefore will not be able to undergo CT angiogram of the chest and will need other work-up possibly VQ scan. Given cardiomegaly on chest x-ray, shortness of breath and elevated BNP, patient would also benefit from echocardiogram and further work-up for possible CHF/cardiomyopathy. I discussed the case with the [facility] hospitalist service, who agreed to evaluate patient for further care. Impression Shortness of breath, Elevated d-dimer Discharge Plan Visit Data Chief Complaint: Shortness of Breath/Dyspnea Stated Complaint: ER DOCTOR CALLED HER TO COME BACK; SOB ED Provider: Abran Manuel ED Midlevel Provider: Shruthi Bailey Discharge Problem: Shortness of breath, Elevated d-dimer Patient Disposition: Admitted As Inpatient Discharge Instructions Interventions: ED Discharge Assessment Last Done: 02/06/23 17:33
[2023-02-08 07:04] LABS: Hematocrit (blood only) 40.6 % (37.0-47.0); Hemoglobin 13.2 g/dl (12.0-16.0); Mean Corpuscular Hemoglobin 26.6 pg (25.0-34.0); Mean Corpuscular Hgb Conc 32.5 g/dL (32.0-36.0); Mean Corpuscular Volume 81.9 fL (80.0-100.0); Mean Platelet Volume 10.7 fL (9.4-12.4); Platelet Count 374 K/uL (130-400); RDW Coefficient of Variation 14.1 % (11.5-14.5); RDW Standard Deviation 41.9 fL (36.4-46.3); Red Blood Count 4.96 M/uL (4.20-5.40); White Blood Count 7.94 K/ul (4.8-10.8)
[2023-02-08 07:19] LABS: BUN Creatinine Ratio 26.5 (10-20); Calcium 9.1 mg/dl (8.6-10.3); Creatinine Clr Calc Pharmacy 88.5 ml/min; Est GFR (Non-African American) 88.8 ml/min; Phosphorus 3.5 mg/dl (2.5-4.9); Potassium 3.7 mmol/L (3.5-5.1)
[2023-02-08] MEDS: VALSARTAN/SACUBITRIL 26/24MG TAB PO SCH ×2 (09:42→20:59)
[2023-02-08] MEDS: SPIRONOLACTONE 12.5 MG TAB PO SCH (09:42)
[2023-02-08] MEDS: carvediloL 3.125 MG TAB PO SCH ×2 (09:43→17:02)
[2023-02-08] MEDS: NICOTINE 14 MG/24 HR PATCH TD SCH (09:44)
[2023-02-08] MEDS: FERROUS SULFATE 325 MG TAB PO SCH (09:44)
[2023-02-08] MEDS: POTASSIUM CHLORIDE CRTAB 20 MEQ TABCR PO SCH (09:50)
[2023-02-08] MEDS: ENOXAPARIN INJ 40 MG/0.4 ML SYR SQ SCH (09:51)
[2023-02-08] MEDS ORDERED: FUROSEMIDE INJ 20 MG/2 ML VIAL IV ONE (10:57)
--- NOTE | 2023-02-08 10:58 | Cardiology Progress Note ---
Date of Service February 08, 2023 Assessment & Plan (1) Acute heart failure with reduced ejection fraction and diastolic dysf unction: Plan: -Patient presents with newly recognized acute heart failure with reduced ejection fraction. -Differential diagnosis includes peripartum cardiomyopathy, cardiomyopathy due to uncontrolled hypertension, or related to illicit drug use. She does have a history of past cocaine use which can cause accelerated coronary heart disease but her presentation is certainly suggestive of a nonischemic cardiomyopathy. Patient notes longstanding history of elevated blood pressures. -Echocardiogram today revealed moderate concentric left ventricular hypertrophy with severe global left ventricular hypokinesis, left ventricular ejection fraction was severely reduced at 25%. Trace mitral regurgitation present. Grade related to diastolic dysfunction noted consistent with elevated filling pressures. Compared to the images obtained at the time of the previous echocardiogram performed 11/14/2022, there has been a severe decline in the left ventricular ejection fraction which had been 60-65% at that time. Continue iron sulfate supplementation given iron deficiency anemia. Continue carvedilol 3.125 mg twice daily, Entresto 26/24 mg twice daily, spironolactone 12.5 mg daily. Patient currently on potassium chloride 40 mill colons daily, but anticipate that this may not be necessary long-term depending upon whether or not she goes on oral diuretic therapy. Plan for furosemide 10 mg IV x1 today. Anticipate need for LifeVest at discharge. Order completed. DVT prophylaxis: Lovenox Admission and Anticipated Discharge Date Admission Date: February 06, 2023 Subjective Patient seen in cardiology follow-up. Notes feeling improved. She has not been out of bed much other than to walk a short distance to the restroom. She notes that the cough however that she was having with deep inspiration is improving. Telemetry had previously revealed sinus tachycardia in the range of 100 to 110 bpm, improved to the 70s overnight last night and thus far this morning. No ventricular arrhythmias observed. Physical Exam Physical Exam: CBC 02/08/23 Range/Units 06:48 WBC 7.94 (4.8-10.8) K/ul RBC 4.96 (4.20-5.40) M/uL Hgb 13.2 (12.0-16.0) g/dl Hct 40.6 (37.0-47.0) % Plt Count 374 (130-400) K/uL Comprehensive Metabolic Panel 02/08/23 Range/Units 06:48 Sodium 134 L (136-145) mmol/L Potassium 3.7 (3.5-5.1) mmol/L Chloride 105 (98-107) mmol/L Carbon Dioxide 22 (21-32) mmol/L BUN 22 (6-23) mg/dl Creatinine 0.83 (0.6-1.2) mg/dl Glucose 107 H (70-99(Fasting)) mg/dl Calcium 9.1 (8.6-10.3) mg/dl Temp Pulse Resp BP Pulse Ox O2 Del Method 36.5 C 76 18 129/63 129 H Room Air 02/08/23 07:55 02/08/23 07:55 02/08/23 07:55 02/08/23 07:55 02/08/23 07:55 02/08/23 07:55 Constitutional: WD/WN, vitals as above Eyes: PERRL, conjunctivae normal, anicteric sclerae Respiratory: normal respiratory effort, lungs clear to auscultation Cardiovascular: RRR, no murmur, no edema Gastrointestinal (Abdomen): normal bowel sounds, soft, nontender, no hepato splenomegaly Skin: no rashes, warm and dry Neurologic: PERRL, EOMI, accommodation nl, no face palsy, no dysarthria Results & Data Vital Signs (Past 12 Hours) Vital Signs Temp Pulse Pulse Resp BP Pulse Ox O2 Del Method 02/08/23 07:55 36.5 C 76 18 129/63 129 H Room Air 02/08/23 07:24 77 02/08/23 04:18 36.4 C L 72 18 131/85 96 Room Air 02/07/23 23:20 Room Air 02/07/23 23:24 36.9 C 89 18 142/95 H 98 Room Air
--- NOTE | 2023-02-08 17:35 | Hospitalist Progress Note ---
Date of Service February 08, 2023 Assessment & Plan (1) Shortness of breath: (2) Non-ischemic cardiomyopathy: (3) Preeclampsia complicating hypertension: (4) Hepatitis C: (5) History of drug use: (6) Tobacco use disorder: Plan 37-year-old female with PMH of uncontrolled hypertension, history of IV drug use, hepatitis C untreated, anaphylactic allergy to iodinated contrast, history of preeclampsia, recent delivery 2 mo post- and other medical problems listed below who presents with shortness of breath and chest pain x2 days. She is being managed for the following: SOB Likely cardiomyopathy Acute decompensated HF with reduced EF SOB with associated CP x 2 days [employer] in setting of 2 mo post , h/o IV drug use At admission - BNP 729, d-dimer 1,050, HS troponin flat trend around 15 . EKG without significant changes from previous . UDS positive for marijuana . High suspicion for PE but anaphylactic to contrast. VQ scan, BLE doppler with low probability of PE/no DVT. Echo with EF of 25%, moderate concentric LVH, grade 2 diastolic dysfunction, severe global hypokinesis of the left ventricle. Cardiology on board, patient undergoing guideline directed medical therapy optimization. Diuresis, daily weights, strict I&O Monitor replete electrolytes. Patient reports improving shortness of breath with activity. Uncontrolled HTN, non-compliance History of preeclampsia during , has not been taking nifedipine at home since running out Given dose of nifedipine in ED, will need close monitoring of BP, undergoing GDMT, blood pressure getting better Recent delivery, 2 mo post- : Not nursing, UPT negative at admission Tobacco use disorder: Offered nicotine patch, declined Hepatitis C: Documented previously, untreated . Discussed importance of outpatient GI follow-up . LFTs normal on admission. repeat LFT normal. DVT Ppx: SQ heparin Code status: FULL PCP: [place] Dispo: Admitted to PCU , will need preauth for necessary new medications including Entresto Admission and Anticipated Discharge Date Admission Date: February 06, 2023 Subjective Patient seen and examined at bedside as a follow-up of nonischemic cardiom yopathy, cardiomyopathy, acute decompensated heart failure with reduced ejection fraction, uncontrolled hypertension. Patient was sitting up in bed, on room air, NAD, reports improving shortness of breath with minimal activity, denies headache or dizziness or flulike illness or cough. Reports eating okay and moving bowels okay. Physical Exam Physical Exam: GENERAL: Alert and oriented x3. NAD, on RA. HEENT: No pallor, no icterus. Pupils equal, round and reactive to light. Oral mucosa moist. NECK: No JVD, no neck masses. HEART: S1 and S2 heard. Regular rate and rhythm. No murmur, no gallop. RESPIRATORY SYSTEM: Normal AP diameter. No accessory muscle use. No wheezing, no crackles. ABDOMEN: Soft, bowel sounds present, nontender, no distention. CENTRAL NERVOUS SYSTEM: No facial droop. Speech is clear. Obeys simple commands. Moves extremities. EXTREMITIES: No edema, no erythema seen. Results & Data Results & Data Vital Signs (Past 12 Hours) Vital Signs Temp Pulse Pulse Resp BP Pulse Ox O2 Del Method 02/08/23 16:02 85 02/08/23 15:50 36.7 C 88 18 117/66 97 Room Air 02/08/23 11:00 36.9 C 81 18 132/63 97 Room Air 02/08/23 07:55 36.5 C 76 18 129/63 97 Room Air 02/08/23 07:24 77
[2023-02-09 05:26] LABS: Creatinine Ur 3 mg/dL (20-275); Protein, Urine Random <4 mg/dL (5-24); Ur Protein/Creat Ratio mg/g NOTE mg/g creat (24-184); Urine Abnormal Protein Band 1 DNR mg/dL (NONE DETECTED); Urine Abnormal Protein Band 2 DNR mg/dL (NONE DETECTED); Urine Abnormal Protein Band 3 DNR mg/dL (NONE DETECTED); Urine Protein/Creatinine Ratio NOTE (0.024-0.184)
[2023-02-09 09:23] LABS: Marijuana Quant, GCMS Urine 275 ng/mL (<5)
--- NOTE | 2023-02-09 10:04 | Cardiology Progress Note ---
Date of Service February 09, 2023 Assessment & Plan (1) Acute heart failure with reduced ejection fraction and diastolic dysf unction: (2) High blood pressure: (3) Abnormal electrocardiogram [ECG] [EKG]: (4) History of substance abuse: Plan: Summary: -Patient presents with newly recognized acute heart failure with reduced ejection fraction. -Differential diagnosis includes peripartum cardiomyopathy (2 months post delivery, 3rd with delivery complicated by active substance abuse and preeclampsia), cardiomyopathy due to uncontrolled hypertension, or related to illicit drug use. Her EKG is abnormal suggestive of left ventricular hypertrophy due to h ypertension or less likely ischemia. She does have a history of past cocaine use which can cause early onset atherosclerosis however her presentation is certainly suggestive of a nonischemic cardiomyopathy. Patient notes longstanding history of elevated blood pressures. Serum protein electrophoresis is normal .Urine protein electrophoresis is notable for albumin only. Urine microalbumin ordered, 02/09/23. Glucose levels during this hospital stay do not suggest diabetes. Question is patient has albuminuria related to longstanding hypertension. -Echocardiogram this admission revealed moderate concentric left hypertrophy, with severe global left ventricular hypokinesis, left ventricular ejection fraction was severely reduced at 25%. Trace mitral regurgitation present. Grade related to diastolic dysfunction noted consistent with elevated filling pressures. Compared to the images obtained at the time of the previous echocardiogram performed 11/14/2022, there has been a severe decline in the left ventricular ejection fraction which had been 60-65% at that time. Patient not felt to be clinically volume overloaded on presentation. Had 2 doses of diuretic, the second was 10 mg IV furosemide on 02/08/23 with 2.4 liters of urine output. Recommended Treatments.: Continue iron sulfate supplementation given iron deficiency anemia. Continue carvedilol 3.125 mg twice daily, Entresto 26/24 mg twice daily, spironolactone 12.5 mg daily. Await chemistry panel results for 02/09. Plan to likely discharge on above medications plus furosemide 20 mg PO daily in am. [employer] LifeVest arrived and pt is wearing it. Will arrange outpatient cardiology follow up. Anticipate discharge today or tomorrow. DVT prophylaxis: Lovenox Admission and Anticipated Discharge Date Admission Date: February 06, 2023 Subjective Patient seen in cardiology follow up. She notes feeling improved she was lying supine with her infant having slept in the room with her. She states her inspiratory cough has improved. Telemetry reveals sinus rhythm in the 70s to 90s. Physical Exam Constitutional: WD/WN, vitals as above Eyes: PERRL, conjunctivae normal, anicteric sclerae Respiratory: normal respiratory effort, lungs clear to auscultation Cardiovascular: RRR, no murmur, no edema Gastrointestinal (Abdomen): normal bowel sounds, soft, nontender, no hepatosplenomegaly Skin: no rashes, warm and dry Neurologic: PERRL, EOMI, accommodation nl, no face palsy, no dysarthria Results & Data Vital Signs (Past 12 Hours) Vital Signs Temp Pulse Pulse Pulse Resp BP Pulse Ox 02/09/23 07:50 36.6 C 74 74 16 135/72 97 02/09/23 07:29 80 02/09/23 03:59 36.7 C 73 18 125/82 98 02/08/23 23:00 88 02/08/23 23:24 37.1 C 88 18 127/84 99 O2 Del Method 02/09/23 07:50 Room Air 02/09/23 07:29 02/09/23 03:59 Room Air 02/08/23 23:00 02/08/23 23:24 Room Air
[2023-02-09] MEDS: VALSARTAN/SACUBITRIL 26/24MG TAB PO SCH (10:18)
[2023-02-09] MEDS: SPIRONOLACTONE 12.5 MG TAB PO SCH (10:19)
[2023-02-09] MEDS: FERROUS SULFATE 325 MG TAB PO SCH (10:20)
[2023-02-09 10:32] LABS: Hematocrit (blood only) 37.6 % (37.0-47.0); Hemoglobin 12.2 g/dl (12.0-16.0); Mean Corpuscular Hemoglobin 26.7 pg (25.0-34.0); Mean Corpuscular Hgb Conc 32.4 g/dL (32.0-36.0); Mean Corpuscular Volume 82.3 fL (80.0-100.0); Mean Platelet Volume 10.2 fL (9.4-12.4); Platelet Count 327 K/uL (130-400); RDW Coefficient of Variation 14.1 % (11.5-14.5); Red Blood Count 4.57 M/uL (4.20-5.40); White Blood Count 6.16 K/ul (4.8-10.8)
[2023-02-09 10:52] LABS: BUN Creatinine Ratio 28.1 (10-20); Calcium 9.2 mg/dl (8.6-10.3); Creatinine Clr Calc Pharmacy 76.5 ml/min; Est GFR (African American) 86.3 ml/min; Est GFR (Non-African American) 74.5 ml/min; Magnesium 1.9 mg/dl (1.7-2.4); Phosphorus 4.4 mg/dl (2.5-4.9); Potassium 3.9 mmol/L (3.5-5.1)
[2023-02-09] MEDS: POTASSIUM CHLORIDE CRTAB 20 MEQ TABCR PO SCH (11:01)
[2023-02-09] MEDS: carvediloL 3.125 MG TAB PO SCH (11:02)
[2023-02-09] MEDS: NICOTINE 14 MG/24 HR PATCH TD SCH (11:02)
[2023-02-09] MEDS: ENOXAPARIN INJ 40 MG/0.4 ML SYR SQ SCH (11:04)
--- NOTE | 2023-02-09 13:23 | Discharge Summary ---
Date of Service February 09, 2023 Admission HPI Per Admitting Provider This is a 37-year-old female with PMH of uncontrolled hypertension, history of drug use, hepatitis C recent history of, anaphylactic allergy to iodinated contrast, history of preeclampsia,recent delivery 2 mo post- and other medical problems listed below who presents with shortness of breath and chest pain x2 days. Patient has an 8-week-old daughter and was complicated by eclampsia without seizure. Was prescribed nifedipine but has not been taking since she ran out a few weeks ago. Does not take any other medications on a scheduled basis. Developed shortness of breath 2 days ago that is constant and exacerbated with movement, also worse when lying flat. Patient endorses an associated chest tightness that is central and radiates towards her back. Denies any fever, chills or known recent sick contacts. No lightheadedness, presyncope, palpitations. Has had some nausea the past 2 days but denies any vomiting or abdominal pain. No longer having bleeding but is unsure if she has had her period yet. Denies any dysuria, hematuria, diarrhea or constipation. History of asthma as a child but not on any inhalers as an adult. Patient was seen in ED overnight and treated with nebulizer which improved shortness of breath. Left AMA because she did not want a further work-up but returned with prompting due to some abnormal lab work. Smoking 0.5-1ppd and drinking alcohol a few times per week. Denies any drug use since having the baby. History of anaphylaxis in response to iodinated contrast dye. Admission Exam Per Admitting Provider General: Sitting comfortably in bed, not in distress, on room air HEENT: EOMI, DEMOND, MMM Chest: Clear breath sounds bilaterally, no wheezes or crackles CVS: Regular rate and rhythm, normal heart sounds, no murmur Abdomen: Soft, non tender, not distended, normal bowel sounds Neuro: Awake, alert, oriented, conversing well, non focal Extremities: No cyanosis, clubbing or edema Principal Diagnosis Acute decompensated heart failure with reduced ejection fraction Likely cardiomyopathy Uncontrolled hypertension, noncompliance Discharge Exam GENERAL: Alert and oriented x3. NAD, on RA. HEENT: No pallor, no icterus. Pupils equal, round and reactive to light. Oral mucosa moist. NECK: No JVD, no neck masses. HEART: S1 and S2 heard. Regular rate and rhythm. No murmur, no gallop. RESPIRATORY SYSTEM: Normal AP diameter. No accessory muscle use. No wheezing, no crackles. ABDOMEN: Soft, bowel sounds present, nontender, no distention. CENTRAL NERVOUS SYSTEM: No facial droop. Speech is clear. Obeys simple commands. Moves extremities. EXTREMITIES: No edema, no erythema seen. Discharge Data Allergies Allergy/AdvReac Type Severity Reaction Status Date / Time shellfish derived Allergy Severe Anaphylaxis Verified 12/05/22 14:09 latex Allergy Mild itching Verified 12/05/22 14:09 Iodinated Contrast Media Allergy Unknown ANAPHYLAXIS Verified 12/05/22 14:09 Consultations 02/06/23 13:38 ED Decision to Admit Stat 02/06/23 14:32 Consult Cardiology Routine Ordered Studies 02/06/23 13:40 US venous doppler [facility] Stat Hospital Course (1) Shortness of breath: (2) Non-ischemic cardiomyopathy: (3) Preeclampsia complicating hypertension: (4) Hepatitis C: (5) History of drug use: (6) Tobacco use disorder: Plan 37-year-old female with PMH of uncontrolled hypertension, history of IV drug use, hepatitis C untreated, anaphylactic allergy to iodinated contrast, history of preeclampsia, recent delivery 2 mo post- and other medical problems listed below who presents with shortness of breath and chest pain x2 days. She was managed for the following: SOB Likely cardiomyopathy Acute decompensated HF with reduced EF SOB with associated CP x 2 days FINANCE CLERK in setting of 2 mo post , h/o IV drug use At admission - BNP 729, d-dimer 1,050, HS troponin flat trend around 15 . EKG without significant changes from previous . UDS positive for marijuana . High suspicion for PE but anaphylactic to contrast. VQ scan, BLE doppler with low probability of PE/no DVT. Echo with EF of 25%, moderate concentric LVH, grade 2 diastolic dysfunction, severe global hypokinesis of the left ventricle. Cardiology on board, medications has been optimized. Patient to follow-up with PCP and get labs done in a week time. Patient to follow-up with cardiology in a month time. Clinically patient reports improving shortness of breath with activity. Patient is being discharged on LifeVest. Uncontrolled HTN, non-compliance : Blood pressure under control with cardiac medications being optimized. Encouraged compliance with cardiac medications. Recent delivery, 2 mo post- : Not nursing, UPT negative at admission Tobacco use disorder: Offered nicotine patch, declined. [employer] tobacco cessation. Hepatitis C: Documented previously, untreated . Discussed importance of outpatient GI follow-up . LFTs normal on admission. repeat LFT normal. DVT Ppx: SQ heparin Code status: FULL PCP: [place] Patient being discharged home with following instruction at the point of discharge: Follow-up with your primary care physician within a week time and likely you will need labs CBC/CMP/magnesium/phosphorus. Maintain heart healthy diet, low-sodium diet [less than 2 g/day] and maintain compliance with blood pressure medications. You have been evaluated by cardiology while in the hospital for acute decompensated heart failure with reduced ejection fraction, your cardiac medications has been optimized. Follow-up with cardiology in a month time upon discharge. Recommend refraining from tobacco use or smoking. Recommend following up with GI doctor as an outpatient for your history of hepatitis C, coordinate with PCP office for referral. Take your medications as prescribed. Maintain compliance. Please make sure that you are able to get your medications today by calling your pharmacy before you leave the hospital so that your treatment continuity is not broken. Home Health Attestation I certify that this patient is under my care and that I, or a physicians travel assistant working with me, had a face to-face encounter that meets the home health [id number] encounter requirements with this patient. The encounter with the patient was in whole, or in part, for the following medical condition, which is the primary reason for home health care (list medical condition): I certify that, based on my findings, the following services are medically necessary home health services: My clinical findings support the need for the above services because: Further, I certify that my clinical findings support that this patient is homebound (i.e. absences from home require considerable and taxing effort and are for medical reasons or congregation services or infrequently or of short duration when for other reasons) because: Certification for Home Health Services: Based on the above findings, I certify that this patient is confined to the home and needs intermittent care home care, physical therapy and/or speech therapy or continues to need occupational therapy. The patient is under my care, and I have initiated the establishment of the plan of care. This patient will be followed by a physician who will periodically review the plan of care. Total Time Total Time Spent Total Time Spent (In Minutes): 45 Discharge Plan Discharge Items Patient Disposition: Home - Self-Care Reason For Visit: SOB, CP, TROP ELEVATION Discharge Diagnosis: Acute decompensated heart failure with reduced ejection fraction Likely cardiomyopathy Uncontrolled hypertension, noncompliance Activity: Resume your previous activity Non-emergency contact: Primary Care Provider Call non-emergency contact if: you have any medication questions, your symptoms worsen and your temperature is above 101 Follow-up/Referrals: Shamar Martines DO [Rivet Sorter] - (The Cardiology office will call you with an appointment.) Janey Duncan MD [Primary Care Provider] - (Date & Time 02/13/2023 11:00 AM Provider Janey Duncan MD Department General Internal Medicine [facility] ) Diet: Heart Healthy and Low Sodium (2gm) Addtl Attending Provider Instructions: Follow-up with your primary care physician within a week time and likely you will need labs CBC/CMP/magnesium/phosphorus. Maintain heart healthy diet, low-sodium diet [less than 2 g/day] and maintain compliance with blood pressure medications. You have been evaluated by cardiology while in the hospital for acute decompensated heart failure with reduced ejection fraction, your cardiac medications has been optimized. Follow-up with cardiology in a month time upon discharge. Recommend refraining from tobacco use or smoking. Recommend following up with GI doctor as an outpatient for your history of hepatitis C, coordinate with PCP office for referral. Take your medications as prescribed. Maintain compliance. Please make sure that you are able to get your medications today by calling your pharmacy before you leave the hospital so that your treatment continuity is not broken. Pending Studies at Discharge: Yes Stand-Alone Forms: My [facility] GettingH[employer], Smoking Cessation Medications and DC Order Prescriptions: New nicotine 7 mg/24 hr Patch 24 Hour 14 mg transdermal DAILY Qty: 28 0RF ferrous sulfate 325 mg (65 mg iron) Tablet,Delayed Release (Dr/Ec) 325 mg PO QAM Qty: 30 0RF carvedilol 3.125 mg Tablet 3.125 mg PO BIDM Qty: 60 0RF Entresto 24-26 mg Tablet 1 tab PO BID Qty: 60 0RF spironolactone 25 mg Tablet 12.5 mg PO DAILY Qty: 15 0RF furosemide 20 mg Tablet 20 mg PO QAM Qty: 30 0RF potassium chloride 20 mEq Tablet,Er Particles/Crystals 20 meq PO QAM Qty: 30 0RF Discontinued nifedipine [Procardia XL] 30 mg tablet extended release 24hr 30 mg PO DAILY Qty: 30 2RF Discharge Orders: Discharge Order (Routine); Ordered 02/09/23 Ordered By: Maged Figueredo Admission Data Admit Date/Time: 02/06/23 13:28 Attending Provider: Maged Figueredo Admit Provider: Ehsan Davison Primary Care Provider: Janey Duncan Other Providers: Ehsan Davison ; Shamar Martines
[2023-02-09 14:12] LABS: Albumin 3.8 g/dL (3.8-4.8); Alpha 1 Globulin 0.4 g/dL (0.2-0.3); Alpha 2 Globulin 0.8 g/dL (0.5-0.9); Beta-1-Globulin 0.5 g/dL (0.4-0.6); Beta-2-Globulin 0.4 g/dL (0.2-0.5); Free Kappa 21.4 mg/L (3.3-19.4); Free Kappa/Lambda Ratio 0.86 (0.26-1.65); Free Lambda 24.9 mg/L (5.7-26.3); Gamma Globulin 1.3 g/dL (0.8-1.7); Monoclonal Protein Band 1 0.4 g/dL (NONE DETECTED); Monoclonal Protein Band 2 DNR g/dL (NONE DETECTED); Monoclonal Protein Band 3 DNR g/dL (NONE DETECTED); Total Protein 7.1 g/dL (6.1-8.1)
[2023-02-10] MEDS ORDERED: FUROSEMIDE 20 MG TAB PO SCH (09:00)
[2023-02-10] MEDS ORDERED: POTASSIUM CHLORIDE CRTAB 20 MEQ TABCR PO SCH (09:00)
== END 2023-02-09 15:57 | disposition home or self-care (01) | DRG 776 ==
LOC: ED 09:33 → EDINP 13:28 → SUATTDRO 13:28 → EDINP 17:33 → 2S 18:45
DX: Z82.49 Family history of ischemic heart disease and other diseases of the circulatory system; O90.3 Peripartum cardiomyopathy; R94.31 Abnormal electrocardiogram [ECG] [EKG]; I50.31 Acute diastolic (congestive) heart failure; I11.0 Hypertensive heart disease with heart failure; F17.210 Nicotine dependence, cigarettes, uncomplicated; Z91.013 Allergy to seafood; I34.0 Nonrheumatic mitral (valve) insufficiency; Z91.040 Latex allergy status; B18.2 Chronic viral hepatitis C; Z91.041 Radiographic dye allergy status; Z91.148 Patient's other noncompliance with medication regimen for other reason; Z79.899 Other long term (current) drug therapy; Z87.09 Personal history of other diseases of the respiratory system; E87.6 Hypokalemia